=== PATIENT | male | born 1970 | race Caucasian/White ===

== ENCOUNTER 2017-03-31 11:53 | Inpatient (IN) | payer OTHER ==
[2017-03-31 12:53] VITALS: BMI 21.8
--- NOTE | 2017-03-31 14:24 | HP ---
COWS - Scale Resting Pulse: 0= [place] 80 or Below Sweatin=Flushed/Facial Moisture Restless Observation: 3= Extraneous Movement Pupil Size: 2= Moderately Dilated Bone or Joint Aches: 2= Severe Diffuse Aches Runny Nose/ Eye Tearin= Runny Nose/Eyes GI Upset > 30mins: 3= Vomiting/Diarrhea Tremor Observation: 2= Slight Tremor Visible Yawning Observation: 2= >3x During Session Anxiety or Irritability: 2=Irritable/Anxious Goose Flesh Skin: 0=Smooth Skin COWS Score: 20 Admission ROS S - HPI Chief Complaint: i neeed help to stop using heroin and cocaine Allergies/Adverse Reactions: Allergies Allergy/AdvReac Type Severity Reaction Status Date / Time No Known Allergies Allergy Verified 03/31/17 14:06 History of Present Illness: this 46 years old male with heroin and cocaine dependence,seeking detox,last treatment in 02/06,[facility],not completed nicotine dependence weight loss longest period of sobriety 7 years Exam Limitations: No Limitations - Ebola screening Have you traveled outside of the country in the last 21 days: No Have you had contact with anyone from an Ebola affected area: No Have you been sick,other than usual withdrawal symptoms: No Do you have a fever: No - Review of Systems Constitutional: Chills, Diaphoresis, Loss of Appetite, Malaise, Night Sweats, Changes in sleep, Weakness, Unintentional Wgt. Loss EENT: reports: Hearing Loss, Nose Congestion Respiratory: reports: No Symptoms reported Cardiac: reports: Palpitations GI: reports: Diarrhea, Nausea, Vomiting, Abdominal cramping : reports: No Symptoms Reported Musculoskeletal: reports: Back Pain, Joint Pain, Muscle Pain, Joint Stiffness Integumentary: reports: Dryness Neuro: reports: Headache, Tremors Endocrine: reports: No Symptoms Reported Hematology: reports: No Symptoms Reported Psychiatric: reports: No Sypmtoms Reported Patient History - Patient Medical History Hx Anemia: No Hx Asthma: No Hx Chronic Obstructive Pulmonary Disease (COPD): No Hx Cancer: No Hx Cardiac Disorders: No Hx Hypertension: No Hx Hypercholesterolemia: No Hx Pacemaker: No HX Cerebrovascular Accident: No Hx Seizures: No Hx Diabetes: No Hx Gastrointestinal Disorders: No Hx Liver Disease: No Hx Genitourinary Disorders: No Hx Sexually Transmitted Disorders: No Hx Renal Disease (ESRD): No Hx Thyroid Disease: No Hx Human Immunodeficiency Virus (HIV): No (last 10/09 negative) Hx Hepatitis C: Yes (treated with harvoni) Hx Depression: No Hx Suicide Attempt: No Hx Bipolar Disorder: No Hx Schizophrenia: No Other Medical History: no suicidal,no homicidal - Patient Surgical History Past Surgical History: No - PPD History Previous Implant?: Yes Documented Results: Negative w/o proof Implanted On Prior [facility] Admission?: Yes PPD to be Administered?: Yes - Smoking Cessation Smoking history: Current every day smoker Have you smoked in the past 12 months: Yes Aproximately how many cigarettes per day: 5 Hx Chewing Tobacco Use: No Initiated information on smoking cessation: Yes 'Breaking Loose' booklet given: 03/31/17 - Substance & Tx. History Hx Alcohol Use: No Hx Substance Use: Yes Substance Use Type: Heroin Hx Substance Use Treatment: Yes (02/06 [facility] not completed) - Substances Abused Heroin Route: Injection Frequency: Daily Amount used: 10 bags Age of first use: 30 Date of Last Use: 03/31/17 Cocaine Route: Injection Frequency: 1-2 times per week Amount used: 1 gm Age of first use: 23 Date of Last Use: 03/29/17 Family Disease History - Family Disease History Family History: Denies Admission Physical Exam S - Vital Signs Vital Signs: Vital Signs - 24 hr 03/31/17 12:52 Temperature 97.7 F Pulse Rate 78 Respiratory 20 Rate Blood Pressure 112/70 - Physical General Appearance: Yes: Moderate Distress, Tremorous, Irritable, Sweating, Anxious HEENTM: Yes: Normal ENT Inspection, NICHOL, Pharynx Normal, Nasal Congestion Respiratory: Yes: Lungs Clear, Normal Breath Sounds, No Respiratory Distress Neck: Yes: Within Normal Limits, Supple, Trachea in good position Breast: Yes: Within Normal Limits Cardiology: Yes: Within Normal Limits, Regular Rhythm, Regular Rate, S1, S2 Abdominal: Yes: Within Normal Limits, Normal Bowel Sounds, Non Tender, Flat, Soft Genitourinary: Yes: Within Normal Limits Back: Yes: Muscle Spasm Musculoskeletal: Yes: full range of Motion, Back pain, Joint Stiffness, Muscle Pain Extremities: Yes: Tremors 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, Fully Oriented, Alert, Motor Strength 5/5 Integumentary: Yes: Dry, Track Kimble Lymphatic: Yes: Within Normal Limits - Diagnostic (1) Opioid dependence with withdrawal Current Visit: Yes Status: Acute (2) Cocaine dependence Current Visit: Yes Status: Acute Qualifiers: Substance use status: uncomplicated Qualified Code(s): F14.20 - Cocaine dependence, uncomplicated (3) Weight loss Current Visit: Yes Status: Acute (4) Nicotine dependence Current Visit: Yes Status: Acute Qualifiers: Nicotine product type: cigarettes Substance use status: in withdrawal Qualified Code(s): F17.213 - Nicotine dependence, cigarettes, with withdrawal (5) Hepatitis C Current Visit: Yes Status: Acute Qualifiers: Viral hepatitis chronicity: chronic Cleared for Admission [facility] - Detox or Rehab [facility] Level of Care: Medically Managed Detox Regimen/Protocol: Methadone [facility] Breath Alcohol Content Breath Alcohol Content: 0 Urine Drug Screen - Results Drug Screen Negative: No Urine Drug Screen Results: COLT-Cocaine, OPI-Opiates
[2017-03-31] MEDS ORDERED: LOPERAMIDE HCL 2 MG CAPSULE PO PRN (14:41)
[2017-03-31] MEDS ORDERED: MAGNESIUM HYDROX 2400MG/30ML ORAL SUSPENSION 30 ML CUP PO PRN (14:41)
[2017-03-31] MEDS ORDERED: ACETAMINOPHEN 325 MG TABLET (FP) PO PRN (14:41)
[2017-03-31] MEDS ORDERED: guaiFENesin/D-METHORPHAN HB 10 ML UNIT-DOSE CUPS PO PRN (14:41)
[2017-03-31] MEDS ORDERED: IBUPROFEN 400 MG TABLET (FP) PO PRN (14:41)
[2017-03-31] MEDS ORDERED: MENTHOL/PHENOL 1 EACH UD MM PRN (14:41)
[2017-03-31] MEDS ORDERED: MAGNESIUM CITRATE 300 ML BOTTLE PO PRN (14:41)
[2017-03-31] MEDS ORDERED: MAG HYDROX/AL HYDROX/SIMETH 30 ML UNIT-DOSE CUP PO PRN (14:41)
[2017-03-31] MEDS ORDERED: hydrOXYzine PAMOATE 25 MG CAPSULE (FP) PO PRN (14:41)
[2017-03-31] MEDS ORDERED: P-EPHED 60MG/TRIPROLIDI 2.5MG TABLET PO PRN (14:41)
[2017-03-31] MEDS ORDERED: NICOTINE POLACRILEX 2 MG GUM BUC PRN (14:41)
[2017-03-31] MEDS ORDERED: METHADONE HCL 10 MG TABLET (FOR DETOX USE ONLY) PO ONE ×2 (15:29→23:00)
[2017-03-31] MEDS: diazePAM 5 MG TABLET PO PRN ×2 (15:47→22:10)
[2017-03-31] MEDS: NICOTINE 14 MG/24 HOURS TOPICAL PATCH TD SCH (15:49)
[2017-03-31 17:07] LABS: URINE APPEARANCE CLEAR; URINE BILIRUBIN NEGATIVE (NEGATIVE); URINE BLOOD NEGATIVE (NEGATIVE); URINE COLOR YELLOW; URINE GLUCOSE (UA) NEGATIVE (NEGATIVE); URINE KETONE NEGATIVE (NEGATIVE); URINE LEUK ESTERASE NEGATIVE (NEGATIVE); URINE NITRITE NEGATIVE (NEGATIVE); URINE PROTEIN NEGATIVE (NEGATIVE)
[2017-03-31] MEDS: cloNIDine HCL 0.1 MG TABLET PO SCH (22:10)
[2017-03-31] MEDS: THIAMINE HCL 100 MG TABLET (FP) PO SCH (22:10)
[2017-03-31] MEDS: CYCLOBENZAPRINE HCL 10 MG TABLET (FP) PO PRN (22:10)
[2017-04-01 02:24] LABS: HIV 1 & 2 AB NEGATIVE; HIV 1 AGp24 NEGATIVE
[2017-04-01] MEDS: diazePAM 5 MG TABLET PO PRN ×2 (05:10→22:09)
[2017-04-01] MEDS ORDERED: METHADONE HCL 10 MG TABLET (FOR DETOX USE ONLY) PO ONE (10:00)
[2017-04-01 10:02] LABS: MCH 29.2 pg (25.7-33.7); MCHC 33.5 g/dl (32.0-35.9); MEAN PLT VOLUME 9.8 fl (7.5-11.1); PLATELET COUNT 166 K/MM3 (134-434); RDW 13.5 % (11.9-15.9); WHITE BLOOD COUNT 6.6 K/mm3 (4.0-10.0)
[2017-04-01] MEDS: PRENATAL VITAMINS W/ FOLIC ACID TABLET (FP) PO SCH (10:07)
[2017-04-01] MEDS: cloNIDine HCL 0.1 MG TABLET PO SCH ×2 (10:07→22:09)
[2017-04-01] MEDS: NICOTINE 14 MG/24 HOURS TOPICAL PATCH TD SCH (10:08)
--- NOTE | 2017-04-01 10:08 | PN ---
BHS COWS - Scale Resting Pulse: 0= [place] 80 or Below Sweatin= Chills/Flushing Restless Observation: 3= Extraneous Movement Pupil Size: 2= Moderately Dilated Bone or Joint Aches: 4=Acute Joint/Muscle Pain Runny Nose/ Eye Tearin= Nasal Congestion GI Upset > 30mins: 1= Stomach Cramp Tremor Observation of Outstretched Hands: 1= Tremor [place], Not Seen Yawning Observation: 1= 1-2x During Session Anxiety or Irritability: 1=Feels Anxious/Irritable Goose Flesh Skin: 0=Smooth Skin COWS Score: 15 BHS Progress Note (SOAP) Subjective: ANXIETY,FATIGUE,SWEATS. Objective: 04/01/17 10:07 Vital Signs Temperature 96.8 F L 04/01/17 09:20 Pulse Rate 75 04/01/17 09:20 Respiratory Rate 18 04/01/17 09:20 Blood Pressure 113/72 04/01/17 09:20 O2 Sat by Pulse Oximetry (%) Laboratory Last Values WBC 6.6 K/mm3 (4.0-10.0) 04/01/17 06:00 RBC 4.67 M/mm3 (4.00-5.60) 04/01/17 06:00 Hgb 13.6 GM/dL (11.7-16.9) 04/01/17 06:00 Hct 40.6 % (35.4-49) 04/01/17 06:00 MCV 87.0 fl (80-96) 04/01/17 06:00 MCH 29.2 pg (25.7-33.7) 04/01/17 06:00 MCHC 33.5 g/dl (32.0-35.9) 04/01/17 06:00 RDW 13.5 % (11.9-15.9) 04/01/17 06:00 Plt Count 166 K/MM3 (134-434) 04/01/17 06:00 MPV 9.8 fl (7.5-11.1) 04/01/17 06:00 Urine Color Yellow 03/31/17 15:00 Urine Appearance Clear 03/31/17 15:00 Urine pH 5.0 (5.0-8.0) 03/31/17 15:00 Ur Specific [place] 1.025 (1.005-1.025) 03/31/17 15:00 Urine Protein Negative (NEGATIVE) 03/31/17 15:00 Urine Glucose (UA) Negative (NEGATIVE) 03/31/17 15:00 Urine Ketones Negative (NEGATIVE) 03/31/17 15:00 Urine Blood Negative (NEGATIVE) 03/31/17 15:00 Urine Nitrite Negative (NEGATIVE) 03/31/17 15:00 Urine Bilirubin Negative (NEGATIVE) 03/31/17 15:00 Urine Urobilinogen 2.0 mg/dL (0.2-1.0) 03/31/17 15:00 Ur Leukocyte Esterase Negative (NEGATIVE) 03/31/17 15:00 HIV 1&2 Antibody Screen Negative 03/31/17 14:00 HIV P24 Antigen Negative 03/31/17 14:00 Assessment: 04/01/17 10:08 WITHDRAWAL SX Plan: CONTINUE DETOX
[2017-04-01 10:32] LABS: ALBUMIN 3.8 g/dl (3.4-5.0); ALK PHOS 79 U/L (45-117); ANION GAP 8 (8-16); BILIRUBIN,TOTAL 0.5 mg/dL (0.2-1.0); CALCIUM 9.3 mg/dL (8.5-10.1); CO2 31 mmol/L (21-32); CREATININE 1.1 mg/dL (0.7-1.3); GLUCOSE,RANDOM 132 mg/dL (74-106); SGOT/AST 19 U/L (15-37); SGPT/ALT 16 U/L (12-78); TOT PROT 7.7 g/dl (6.4-8.2)
--- NOTE | 2017-04-01 15:39 | EKG ---
Test Reason : Blood Pressure : / mmHG Vent. Rate : 070 BPM Atrial Rate : 070 BPM P-R Int : 156 ms QRS Dur : 070 ms QT Int : 438 ms P-R-T Axes : 066 052 001 degrees QTc Int : 473 ms NORMAL SINUS RHYTHM NORMAL ECG NO PREVIOUS ECGS AVAILABLE Confirmed by NIKKI ZAMBRANO MD ([id number]) on 04/01/2017 3:38:56 PM Referred By: Confirmed By:NIKKI ZAMBRANO MD
[2017-04-01] MEDS: THIAMINE HCL 100 MG TABLET (FP) PO SCH (22:09)
[2017-04-01] MEDS: CYCLOBENZAPRINE HCL 10 MG TABLET (FP) PO PRN (22:09)
[2017-04-02] MEDS ORDERED: METHADONE HCL 5 MG TABLET (FOR DETOX USE ONLY) PO ONE (10:00)
--- NOTE | 2017-04-02 10:02 | PN ---
BHS COWS - Scale Resting Pulse: 1= [place] 81-100 Sweatin= Chills/Flushing Restless Observation: 3= Extraneous Movement Pupil Size: 2= Moderately Dilated Bone or Joint Aches: 4=Acute Joint/Muscle Pain Runny Nose/ Eye Tearin= Nasal Congestion GI Upset > 30mins: 1= Stomach Cramp Tremor Observation of Outstretched Hands: 1= Tremor [place], Not Seen Yawning Observation: 1= 1-2x During Session Anxiety or Irritability: 1=Feels Anxious/Irritable Goose Flesh Skin: 0=Smooth Skin COWS Score: 16 S Progress Note (SOAP) Subjective: ANXIETY,FATIGUE, IRRITABILITY,INTERMITTENT SLEEP. Objective: 04/02/17 10:03 Vital Signs Temperature 96.8 F L 04/02/17 06:07 Pulse Rate 86 04/02/17 06:07 Respiratory Rate 18 04/02/17 06:07 Blood Pressure 102/73 04/02/17 06:07 O2 Sat by Pulse Oximetry (%) Laboratory Last Values WBC 6.6 K/mm3 (4.0-10.0) 04/01/17 06:00 RBC 4.67 M/mm3 (4.00-5.60) 04/01/17 06:00 Hgb 13.6 GM/dL (11.7-16.9) 04/01/17 06:00 Hct 40.6 % (35.4-49) 04/01/17 06:00 MCV 87.0 fl (80-96) 04/01/17 06:00 MCH 29.2 pg (25.7-33.7) 04/01/17 06:00 MCHC 33.5 g/dl (32.0-35.9) 04/01/17 06:00 RDW 13.5 % (11.9-15.9) 04/01/17 06:00 Plt Count 166 K/MM3 (134-434) 04/01/17 06:00 MPV 9.8 fl (7.5-11.1) 04/01/17 06:00 Sodium 138 mmol/L (136-145) 04/01/17 06:00 Potassium 3.5 mmol/L (3.5-5.1) 04/01/17 06:00 Chloride 99 mmol/L (98-107) 04/01/17 06:00 Carbon Dioxide 31 mmol/L (21-32) 04/01/17 06:00 Anion Gap 8 (8-16) 04/01/17 06:00 BUN 21 mg/dL (7-18) H 04/01/17 06:00 Creatinine 1.1 mg/dL (0.7-1.3) 04/01/17 06:00 Creat Clearance w eGFR > 60 (>60) 04/01/17 06:00 Random Glucose 132 mg/dL (74-106) H 04/01/17 06:00 Calcium 9.3 mg/dL (8.5-10.1) 04/01/17 06:00 Total Bilirubin 0.5 mg/dL (0.2-1.0) 04/01/17 06:00 AST 19 U/L (15-37) 04/01/17 06:00 ALT 16 U/L (12-78) 04/01/17 06:00 Alkaline Phosphatase 79 U/L (45-117) 04/01/17 06:00 Total Protein 7.7 g/dl (6.4-8.2) 04/01/17 06:00 Albumin 3.8 g/dl (3.4-5.0) 04/01/17 06:00 Urine Color Yellow 03/31/17 15:00 Urine Appearance Clear 03/31/17 15:00 Urine pH 5.0 (5.0-8.0) 03/31/17 15:00 Ur Specific [place] 1.025 (1.005-1.025) 03/31/17 15:00 Urine Protein Negative (NEGATIVE) 03/31/17 15:00 Urine Glucose (UA) Negative (NEGATIVE) 03/31/17 15:00 Urine Ketones Negative (NEGATIVE) 03/31/17 15:00 Urine Blood Negative (NEGATIVE) 03/31/17 15:00 Urine Nitrite Negative (NEGATIVE) 03/31/17 15:00 Urine Bilirubin Negative (NEGATIVE) 03/31/17 15:00 Urine Urobilinogen 2.0 mg/dL (0.2-1.0) 03/31/17 15:00 Ur Leukocyte Esterase Negative (NEGATIVE) 03/31/17 15:00 RPR Titer Nonreactive (NONREACTIVE) 04/01/17 06:00 HIV 1&2 Antibody Screen Negative 03/31/17 14:00 HIV P24 Antigen Negative 03/31/17 14:00 Assessment: 04/02/17 10:03 WITHDRAWAL SX Plan: CONTINUE DETOX
[2017-04-02] MEDS: PRENATAL VITAMINS W/ FOLIC ACID TABLET (FP) PO SCH (10:10)
[2017-04-02] MEDS: NICOTINE 14 MG/24 HOURS TOPICAL PATCH TD SCH (10:10)
[2017-04-02] MEDS: cloNIDine HCL 0.1 MG TABLET PO SCH ×2 (10:11→22:06)
[2017-04-02] MEDS: diazePAM 5 MG TABLET PO PRN ×2 (16:42→22:06)
[2017-04-02] MEDS: CYCLOBENZAPRINE HCL 10 MG TABLET (FP) PO PRN (22:06)
[2017-04-02] MEDS: THIAMINE HCL 100 MG TABLET (FP) PO SCH (22:07)
[2017-04-02] MEDS: diphenhydrAMINE HCL 50 MG CAPSULE PO PRN (22:07)
[2017-04-03] MEDS ORDERED: TRIMETHOBENZAMIDE HCL 200MG/2ML INJ IM PRN (02:28)
[2017-04-03] MEDS: ONDANSETRON *ODT* 4 MG TABLET SL PRN ×2 (06:32→18:01)
[2017-04-03] MEDS ORDERED: METHADONE HCL 5 MG TABLET (FOR DETOX USE ONLY) PO ONE (10:00)
[2017-04-03] MEDS: PRENATAL VITAMINS W/ FOLIC ACID TABLET (FP) PO SCH (10:08)
[2017-04-03] MEDS: cloNIDine HCL 0.1 MG TABLET PO SCH ×2 (10:08→22:55)
[2017-04-03] MEDS: diazePAM 5 MG TABLET PO PRN (10:09)
[2017-04-03] MEDS: NICOTINE 14 MG/24 HOURS TOPICAL PATCH TD SCH (10:43)
--- NOTE | 2017-04-03 12:30 | PN ---
BHS Progress Note (SOAP) Subjective: Nausea, Stomach Cramping, Interrupted sleep. Objective: PT. A & O X 3. NO ACUTE DISTRESS. PT. DENIES CHEST PAIN. 04/03/17 12:28 Vital Signs Temperature 97.7 F 04/03/17 09:04 Pulse Rate 70 04/03/17 09:04 Respiratory Rate 18 04/03/17 09:04 Blood Pressure 152/97 04/03/17 09:04 O2 Sat by Pulse Oximetry (%) Laboratory Tests 03/31/17 03/31/17 04/01/17 14:00 15:00 06:00 WBC 6.6 RBC 4.67 Hgb 13.6 Hct 40.6 MCV 87.0 MCH 29.2 MCHC 33.5 RDW 13.5 Plt Count 166 MPV 9.8 Sodium Potassium Chloride Carbon Dioxide Anion Gap BUN Creatinine Creat Clearance w eGFR Random Glucose Calcium Total Bilirubin AST ALT Alkaline Phosphatase Total Protein Albumin Urine Color Yellow Urine Appearance Clear Urine pH 5.0 Ur Specific [place] 1.025 Urine Protein Negative Urine Glucose (UA) Negative Urine Ketones Negative Urine Blood Negative Urine Nitrite Negative Urine Bilirubin Negative Urine Urobilinogen 2.0 Ur Leukocyte Esterase Negative RPR Titer HIV 1&2 Antibody Screen Negative HIV P24 Antigen Negative 04/01/17 04/01/17 06:00 06:00 WBC RBC Hgb Hct MCV MCH MCHC RDW Plt Count MPV Sodium 138 Potassium 3.5 Chloride 99 Carbon Dioxide 31 Anion Gap 8 BUN 21 H Creatinine 1.1 Creat Clearance w eGFR > 60 Random Glucose 132 H Calcium 9.3 Total Bilirubin 0.5 AST 19 ALT 16 Alkaline Phosphatase 79 Total Protein 7.7 Albumin 3.8 Urine Color Urine Appearance Urine pH Ur Specific [place] Urine Protein Urine Glucose (UA) Urine Ketones Urine Blood Urine Nitrite Urine Bilirubin Urine Urobilinogen Ur Leukocyte Esterase RPR Titer Nonreactive HIV 1&2 Antibody Screen HIV P24 Antigen LABS NOTED. Assessment: 04/03/17 12:29 WITHDRAWAL SYMPTOMS. Plan: CONTINUE DETOX.
[2017-04-03] MEDS: THIAMINE HCL 100 MG TABLET (FP) PO SCH (22:55)
[2017-04-04] MEDS ORDERED: METHADONE HCL 10 MG TABLET (FOR DETOX USE ONLY) PO ONE (10:00)
[2017-04-04] MEDS: cloNIDine HCL 0.1 MG TABLET PO SCH ×2 (10:06→22:09)
[2017-04-04] MEDS: NICOTINE 14 MG/24 HOURS TOPICAL PATCH TD SCH (10:06)
[2017-04-04] MEDS: PRENATAL VITAMINS W/ FOLIC ACID TABLET (FP) PO SCH (10:06)
--- NOTE | 2017-04-04 13:47 | PN ---
BHS Progress Note (SOAP) Subjective: N/V (patient stated he hasn't been eating because he is nauseous all the time and has been putting his finger down his throat to induce vomiting as vomiting is the only thing that helps his nausea). Patient discouraged from inducing vomiting. He refused to be placed on clear liquid diet. Objective: 04/04/17 13:45 Last Vital Signs Temp Pulse Resp BP Pulse Ox 97.3 F L 86 18 129/85 04/04/17 09:28 04/04/17 09:28 04/04/17 09:28 04/04/17 09:28 Laboratory Tests 03/31/17 03/31/17 04/01/17 14:00 15:00 06:00 WBC 6.6 RBC 4.67 Hgb 13.6 Hct 40.6 MCV 87.0 MCH 29.2 MCHC 33.5 RDW 13.5 Plt Count 166 MPV 9.8 Sodium Potassium Chloride Carbon Dioxide Anion Gap BUN Creatinine Creat Clearance w eGFR Random Glucose Calcium Total Bilirubin AST ALT Alkaline Phosphatase Total Protein Albumin Urine Color Yellow Urine Appearance Clear Urine pH 5.0 Ur Specific [place] 1.025 Urine Protein Negative Urine Glucose (UA) Negative Urine Ketones Negative Urine Blood Negative Urine Nitrite Negative Urine Bilirubin Negative Urine Urobilinogen 2.0 Ur Leukocyte Esterase Negative RPR Titer HIV 1&2 Antibody Screen Negative HIV P24 Antigen Negative 04/01/17 04/01/17 06:00 06:00 WBC RBC Hgb Hct MCV MCH MCHC RDW Plt Count MPV Sodium 138 Potassium 3.5 Chloride 99 Carbon Dioxide 31 Anion Gap 8 BUN 21 H Creatinine 1.1 Creat Clearance w eGFR > 60 Random Glucose 132 H Calcium 9.3 Total Bilirubin 0.5 AST 19 ALT 16 Alkaline Phosphatase 79 Total Protein 7.7 Albumin 3.8 Urine Color Urine Appearance Urine pH Ur Specific [place] Urine Protein Urine Glucose (UA) Urine Ketones Urine Blood Urine Nitrite Urine Bilirubin Urine Urobilinogen Ur Leukocyte Esterase RPR Titer Nonreactive HIV 1&2 Antibody Screen HIV P24 Antigen Labs noted Assessment: 04/04/17 13:46 Withdrawal symptoms c/o n/v without any relief with present regimen Plan: Continue detox N/V: Add syed nicolas PO bid, continue ensure, encouraged to drink lots of water ( water pitcher ordered), start zantac 150mg PO bid
[2017-04-04] MEDS ORDERED: RANITIDINE HCL 150 MG TABLET (FP) PO SCH (22:00)
[2017-04-04] MEDS: CYCLOBENZAPRINE HCL 10 MG TABLET (FP) PO PRN (22:08)
[2017-04-04] MEDS: THIAMINE HCL 100 MG TABLET (FP) PO SCH (22:08)
[2017-04-04] MEDS: diphenhydrAMINE HCL 50 MG CAPSULE PO PRN (22:09)
[2017-04-05] MEDS ORDERED: METHADONE HCL 5 MG TABLET (FOR DETOX USE ONLY) PO ONE (06:00)
[2017-04-05 06:22] VITALS: BP 97/57; PULSE 77; TEMP 97.1
--- NOTE | 2017-04-05 11:26 | DS ---
[facility] Detox Discharge Summary Admission Date: 03/31/17 Discharge Date: 04/05/17 - History Present History: Cocaine Dependence, Opioid Dependence Additional Comments: PT. GOING HOME. ADVISED TO CONSIDER LOCAL 12-STEP / NA / AA OUTPATIENT PROGRAM FOR FOLLOW-UP AFTERCARE. PATIENT WAS DISCHARGED FROM UNIT IN STABLE MEDICAL CONDITION. Pertinent Past History: Hep C (Treated). - Physical Exam Results Vital Signs: Vital Signs Temperature 97.1 F L 04/05/17 06:21 Pulse Rate 77 04/05/17 06:21 Respiratory Rate 18 04/05/17 06:21 Blood Pressure 97/57 04/05/17 06:21 O2 Sat by Pulse Oximetry (%) Pertinent Admission Physical Exam Findings: WITHDRAWAL SYMPTOMS. Laboratory Tests 03/31/17 03/31/17 04/01/17 14:00 15:00 06:00 WBC 6.6 RBC 4.67 Hgb 13.6 Hct 40.6 MCV 87.0 MCH 29.2 MCHC 33.5 RDW 13.5 Plt Count 166 MPV 9.8 Sodium Potassium Chloride Carbon Dioxide Anion Gap BUN Creatinine Creat Clearance w eGFR Random Glucose Calcium Total Bilirubin AST ALT Alkaline Phosphatase Total Protein Albumin Urine Color Yellow Urine Appearance Clear Urine pH 5.0 Ur Specific [place] 1.025 Urine Protein Negative Urine Glucose (UA) Negative Urine Ketones Negative Urine Blood Negative Urine Nitrite Negative Urine Bilirubin Negative Urine Urobilinogen 2.0 Ur Leukocyte Esterase Negative RPR Titer HIV 1&2 Antibody Screen Negative HIV P24 Antigen Negative 04/01/17 04/01/17 06:00 06:00 WBC RBC Hgb Hct MCV MCH MCHC RDW Plt Count MPV Sodium 138 Potassium 3.5 Chloride 99 Carbon Dioxide 31 Anion Gap 8 BUN 21 H Creatinine 1.1 Creat Clearance w eGFR > 60 Random Glucose 132 H Calcium 9.3 Total Bilirubin 0.5 AST 19 ALT 16 Alkaline Phosphatase 79 Total Protein 7.7 Albumin 3.8 Urine Color Urine Appearance Urine pH Ur Specific [place] Urine Protein Urine Glucose (UA) Urine Ketones Urine Blood Urine Nitrite Urine Bilirubin Urine Urobilinogen Ur Leukocyte Esterase RPR Titer Nonreactive HIV 1&2 Antibody Screen HIV P24 Antigen LABS NOTED. - Treatment Hospital Course: Detox Protocol Followed, Detoxed Safely, Responded well, Discharged Condition Good Patient has Accepted a Rehab Referral to: PT. GOING HOME. ADVISED TO CONSIDER 12 -STEP/NA PROGRAMS FOR AFTERCARE. - Medication Discharge Medications: Ambulatory Orders NK [No Known Home Medication] 03/31/17 - Diagnosis (1) Cocaine dependence Status: Acute Qualifiers: Substance use status: uncomplicated Qualified Code(s): F14.20 - Cocaine dependence, uncomplicated (2) Hepatitis C Status: Chronic Qualifiers: Viral hepatitis chronicity: chronic Hepatic coma status: without hepatic coma Qualified Code(s): B18.2 - Chronic viral hepatitis C (3) Nicotine dependence Status: Chronic Qualifiers: Nicotine product type: cigarettes Substance use status: in withdrawal Qualified Code(s): F17.213 - Nicotine dependence, cigarettes, with withdrawal (4) Opioid dependence with withdrawal Status: Acute (5) Weight loss Status: Acute - AMA Did Patient Leave Against Medical Advice: No
== END 2017-04-05 08:58 | disposition home or self-care (01) | DRG 773 ==
LOC: YASAS 11:53 → Y3N 14:33
PROVIDERS: ADMIT Internal Medicine; ATTEND Internal Medicine
PROC: HZ2ZZZZ Detoxification Services for Substance Abuse Treatment (ICD-10-PCS; principal; 2017-03-31)
DX: F11.23 Opioid dependence with withdrawal (principal); F14.20 Cocaine dependence, uncomplicated; F17.210 Nicotine dependence, cigarettes, uncomplicated; B18.2 Chronic viral hepatitis C; Z87.898 Personal history of other specified conditions
CPT/HCPCS: 36415; 80053; 81003; 85027; 86593; 87389; 93005; 93010

== ENCOUNTER 2017-06-11 10:53 | Inpatient (IN) | payer OTHER ==
[2017-06-11 12:03] VITALS: BMI 21.8
--- NOTE | 2017-06-11 14:09 | HP ---
COWS - Scale Resting Pulse: 0= [place] 80 or Below Sweatin=Flushed/Facial Moisture Restless Observation: 3= Extraneous Movement Pupil Size: 2= Moderately Dilated Bone or Joint Aches: 2= Severe Diffuse Aches Runny Nose/ Eye Tearin= Runny Nose/Eyes GI Upset > 30mins: 3= Vomiting/Diarrhea Tremor Observation: 2= Slight Tremor Visible Yawning Observation: 2= >3x During Session Anxiety or Irritability: 2=Irritable/Anxious Goose Flesh Skin: 0=Smooth Skin COWS Score: 20 Admission ROS S - HPI Chief Complaint: I NEED HELP TO STOP USING HEROIN AND COCAINE Allergies/Adverse Reactions: Allergies Allergy/AdvReac Type Severity Reaction Status Date / Time No Known Allergies Allergy Verified 06/11/17 13:35 History of Present Illness: THIS 47 YEARS OLD MAL WITH HEROIN AND CANNABIS DEPENDENCE,SEEKING DETOX,LAST TREATMENT [facility] 03/31/17 TO 04/05/17 WEIGHT LOSS NICOTINE DEPENDENCE LONGEST PERIOD OF SOBRIETY 3 YEARS - Ebola screening Have you traveled outside of the country in the last 21 days: No Have you had contact with anyone from an Ebola affected area: No Have you been sick,other than usual withdrawal symptoms: No Do you have a fever: No - Review of Systems Constitutional: Chills, Loss of Appetite, Malaise, Night Sweats, Changes in sleep, Weakness EENT: reports: Tearing, Nose Congestion Respiratory: reports: No Symptoms reported Cardiac: reports: No Symptoms Reported GI: reports: Diarrhea, Nausea, Vomiting, Abdominal cramping : reports: No Symptoms Reported Musculoskeletal: reports: Back Pain, Joint Pain, Muscle Pain, Joint Stiffness Integumentary: reports: Dryness Neuro: reports: Headache, Tremors Endocrine: reports: No Symptoms Reported Hematology: reports: No Symptoms Reported Psychiatric: reports: No Sypmtoms Reported, Judgement Intact, Mood/Affect Appropiate, Orientated x3 Patient History - Patient Medical History Hx Anemia: No Hx Asthma: No Hx Chronic Obstructive Pulmonary Disease (COPD): No Hx Cancer: No Hx Cardiac Disorders: No Hx Hypertension: No Hx Hypercholesterolemia: No Hx Pacemaker: No HX Cerebrovascular Accident: No Hx Seizures: No Hx Diabetes: No Hx Gastrointestinal Disorders: No Hx Liver Disease: No Hx Genitourinary Disorders: No Hx Sexually Transmitted Disorders: No Hx Renal Disease (ESRD): No Hx Thyroid Disease: No Hx Human Immunodeficiency Virus (HIV): No (last 10/09 negative) Hx Hepatitis C: Yes (treated with harvoni) Hx Depression: No Hx Suicide Attempt: No Hx Bipolar Disorder: No Hx Schizophrenia: No Other Medical History: NO SUICIDAL,NO HOMICIDAL - Patient Surgical History Past Surgical History: No - PPD History Previous Implant?: Yes Documented Results: Negative w/proof Implanted On Prior [facility] Admission?: Yes Date: 04/02/17 PPD to be Administered?: Yes - Smoking Cessation Smoking history: Current every day smoker Have you smoked in the past 12 months: Yes Aproximately how many cigarettes per day: 5 Hx Chewing Tobacco Use: No Initiated information on smoking cessation: Yes 'Breaking Loose' booklet given: 06/11/17 - Substance & Tx. History Hx Alcohol Use: Yes Hx Substance Use: Yes Substance Use Type: Alcohol, Cocaine Hx Substance Use Treatment: Yes (LAST [facility] 03/31 TO 04/05) - Substances Abused Heroin Route: Injection Frequency: Daily Amount used: 15 bags Age of first use: 30 Date of Last Use: 06/11/17 Cocaine Route: Injection Frequency: Daily Amount used: 1 gm weekly/$1000 weekly Age of first use: 23 Date of Last Use: 06/11/17 Family Disease History - Family Disease History Family History: Denies Admission Physical Exam S - Vital Signs Vital Signs: Vital Signs - 24 hr 06/11/17 12:01 Temperature 96.7 F L Pulse Rate 72 Respiratory 18 Rate Blood Pressure 115/71 - Physical General Appearance: Yes: Moderate Distress, Tremorous, Irritable, Sweating, Anxious HEENTM: Yes: Normal ENT Inspection, NICHOL, Pharynx Normal, Tm's normal Respiratory: Yes: Within Normal Limits, Lungs Clear, Normal Breath Sounds Neck: Yes: Within Normal Limits, Supple, Trachea in good position Breast: Yes: Within Normal Limits Cardiology: Yes: Within Normal Limits, Regular Rhythm, Regular Rate, S1, S2 Abdominal: Yes: Within Normal Limits, Normal Bowel Sounds, Non Tender, Flat, Soft Genitourinary: Yes: Within Normal Limits Back: Yes: Muscle Spasm Extremities: Yes: Tremors 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, Fully Oriented, Alert, Motor Strength 5/5 Integumentary: Yes: Dry, Track Kimble, Other - Addiitonal Findings: CELLULITIS OF RIGHT FOREARM - Diagnostic (1) Opioid dependence with withdrawal Current Visit: No Status: Acute (2) Cocaine dependence Current Visit: No Status: Acute Qualifiers: Substance use status: uncomplicated Qualified Code(s): F14.20 - Cocaine dependence, uncomplicated; F14.20 - Cocaine dependence, uncomplicated; F14.20 - Cocaine dependence, uncomplicated (3) Weight loss Current Visit: No Status: Acute (4) Hepatitis C Current Visit: No Status: Chronic Qualifiers: Viral hepatitis chronicity: chronic Hepatic coma status: without hepatic coma Qualified Code(s): B18.2 - Chronic viral hepatitis C; B18.2 - Chronic viral hepatitis C; B18.2 - Chronic viral hepatitis C; B18.2 - Chronic viral hepatitis C (5) Nicotine dependence Current Visit: No Status: Chronic Qualifiers: Nicotine product type: cigarettes Substance use status: in withdrawal Qualified Code(s): F17.213 - Nicotine dependence, cigarettes, with withdrawal; F17.213 - Nicotine dependence, cigarettes, with withdrawal (6) Cellulitis of forearm, right Current Visit: Yes Status: Acute Cleared for Admission [facility] - Detox or Rehab [facility] Level of Care: Medically Managed Detox Regimen/Protocol: Methadone [facility] Breath Alcohol Content Breath Alcohol Content: 0 Urine Drug Screen - Results Drug Screen Negative: No Urine Drug Screen Results: COLT-Cocaine, OPI-Opiates
[2017-06-11] MEDS ORDERED: IBUPROFEN 400 MG TABLET (FP) PO PRN (14:20)
[2017-06-11] MEDS ORDERED: P-EPHED 60MG/TRIPROLIDI 2.5MG TABLET PO PRN (14:20)
[2017-06-11] MEDS ORDERED: MAGNESIUM HYDROX 2400MG/30ML ORAL SUSPENSION 30 ML CUP PO PRN (14:20)
[2017-06-11] MEDS ORDERED: NICOTINE POLACRILEX 2 MG GUM BC PRN (14:20)
[2017-06-11] MEDS ORDERED: MAGNESIUM CITRATE 300 ML BOTTLE PO PRN (14:20)
[2017-06-11] MEDS ORDERED: MENTHOL/PHENOL 1 EACH UD MM PRN (14:20)
[2017-06-11] MEDS ORDERED: MAG HYDROX/AL HYDROX/SIMETH 30 ML UNIT-DOSE CUP PO PRN (14:20)
[2017-06-11] MEDS ORDERED: ACETAMINOPHEN 325 MG TABLET (FP) PO PRN (14:20)
[2017-06-11] MEDS ORDERED: LOPERAMIDE HCL 2 MG CAPSULE PO PRN (14:20)
[2017-06-11] MEDS ORDERED: guaiFENesin/D-METHORPHAN HB 10 ML UNIT-DOSE CUPS PO PRN (14:20)
[2017-06-11] MEDS ORDERED: METHADONE HCL 10 MG TABLET (FOR DETOX USE ONLY) PO ONE ×2 (15:00→23:00)
[2017-06-11] MEDS: NICOTINE 21 MG/24 HOURS TOPICAL PATCH TD SCH (15:03)
[2017-06-11] MEDS: diazePAM 5 MG TABLET PO PRN (15:03)
[2017-06-11 19:04] LABS: URINE APPEARANCE SLCLOUDY; URINE BILIRUBIN NEGATIVE (NEGATIVE); URINE BLOOD NEGATIVE (NEGATIVE); URINE COLOR YELLOW; URINE GLUCOSE (UA) NEGATIVE (NEGATIVE); URINE KETONE NEGATIVE (NEGATIVE); URINE NITRITE NEGATIVE (NEGATIVE); URINE PROTEIN NEGATIVE (NEGATIVE); URINE UROBILINOGEN NEGATIVE mg/dL (0.2-1.0)
[2017-06-11 20:24] LABS: URINE LEUK ESTERASE Negative (NEGATIVE)
[2017-06-11] MEDS: cloNIDine HCL 0.1 MG TABLET PO SCH (22:39)
[2017-06-11] MEDS: THIAMINE HCL 100 MG TABLET (FP) PO SCH (22:39)
[2017-06-11] MEDS: diphenhydrAMINE HCL 50 MG CAPSULE PO PRN (22:40)
[2017-06-12 09:18] LABS: MCH 29.3 pg (25.7-33.7); MCHC 33.1 g/dl (32.0-35.9); MEAN CELL VOLUME 88.4 fl (80-96); MEAN PLT VOLUME 9.3 fl (7.5-11.1); PLATELET COUNT 203 K/MM3 (134-434); RDW 13.7 % (11.9-15.9); WHITE BLOOD COUNT 7.3 K/mm3 (4.0-10.0)
[2017-06-12] MEDS ORDERED: METHADONE HCL 10 MG TABLET (FOR DETOX USE ONLY) PO ONE (10:00)
[2017-06-12] MEDS: cloNIDine HCL 0.1 MG TABLET PO SCH ×2 (11:01→22:38)
[2017-06-12] MEDS: PRENATAL VITAMINS W/ FOLIC ACID TABLET (FP) PO SCH (11:01)
[2017-06-12] MEDS: NICOTINE 21 MG/24 HOURS TOPICAL PATCH TD SCH (11:01)
[2017-06-12 11:13] LABS: ALBUMIN 3.9 g/dl (3.4-5.0); ALK PHOS 81 U/L (45-117); ANION GAP 5 (8-16); BILIRUBIN,TOTAL 0.6 mg/dL (0.2-1.0); CALCIUM 9.1 mg/dL (8.5-10.1); CO2 30 mmol/L (21-32); CREATININE 1.1 mg/dL (0.7-1.3); GLUCOSE,RANDOM 97 mg/dL (74-106); SGOT/AST 16 U/L (15-37); SGPT/ALT 17 U/L (12-78); TOT PROT 7.7 g/dl (6.4-8.2)
--- NOTE | 2017-06-12 11:55 | PN ---
BHS COWS - Scale Resting Pulse: 0= [place] 80 or Below Sweatin= Chills/Flushing Restless Observation: 1= Difficult to Sit Still Pupil Size: 2= Moderately Dilated Bone or Joint Aches: 1= Mild Discomfort Runny Nose/ Eye Tearin= Runny Nose/Eyes GI Upset > 30mins: 2= Nausea/Diarrhea Tremor Observation of Outstretched Hands: 1= Tremor [place], Not Seen Yawning Observation: 0= None Anxiety or Irritability: 2=Irritable/Anxious Goose Flesh Skin: 0=Smooth Skin COWS Score: 12 BHS Progress Note (SOAP) Subjective: aches, poor sleep, sweating Objective: 06/12/17 11:53 Laboratory Tests 06/11/17 06/12/17 06/12/17 18:00 06:00 06:00 WBC 7.3 RBC 4.72 Hgb 13.8 Hct 41.7 MCV 88.4 MCH 29.3 MCHC 33.1 RDW 13.7 Plt Count 203 D MPV 9.3 Sodium 139 Potassium 4.3 D Chloride 104 Carbon Dioxide 30 Anion Gap 5 L BUN 22 H Creatinine 1.1 Creat Clearance w eGFR > 60 Random Glucose 97 D Calcium 9.1 Total Bilirubin 0.6 AST 16 ALT 17 Alkaline Phosphatase 81 Total Protein 7.7 Albumin 3.9 Urine Color Yellow Urine Appearance Slcloudy Urine pH 5.0 Ur Specific [place] 1.025 Urine Protein Negative Urine Glucose (UA) Negative Urine Ketones Negative Urine Blood Negative Urine Nitrite Negative Urine Bilirubin Negative Urine Urobilinogen Negative Ur Leukocyte Esterase Negative RPR Titer 06/12/17 06:00 WBC RBC Hgb Hct MCV MCH MCHC RDW Plt Count MPV Sodium Potassium Chloride Carbon Dioxide Anion Gap BUN Creatinine Creat Clearance w eGFR Random Glucose Calcium Total Bilirubin AST ALT Alkaline Phosphatase Total Protein Albumin Urine Color Urine Appearance Urine pH Ur Specific [place] Urine Protein Urine Glucose (UA) Urine Ketones Urine Blood Urine Nitrite Urine Bilirubin Urine Urobilinogen Ur Leukocyte Esterase RPR Titer Nonreactive Vital Signs - 24 hr 06/11/17 06/11/17 06/11/17 12:01 15:05 18:06 Temperature 96.7 F L 98.2 F 98.2 F Pulse Rate 72 81 80 Respiratory 18 18 18 Rate Blood Pressure 115/71 124/76 104/63 06/11/17 06/12/17 06/12/17 23:47 00:30 04:30 Temperature 98.2 F Pulse Rate 79 Respiratory 18 18 18 Rate Blood Pressure 139/64 06/12/17 06/12/17 06:32 11:09 Temperature 97.6 F 98.2 F Pulse Rate 65 74 Respiratory 16 18 Rate Blood Pressure 119/59 112/75 Assessment: 06/12/17 11:54 withdrawal Plan: cont detox protocol
--- NOTE | 2017-06-12 13:24 | EKG ---
Test Reason : Blood Pressure : / mmHG Vent. Rate : 071 BPM Atrial Rate : 071 BPM P-R Int : 150 ms QRS Dur : 068 ms QT Int : 418 ms P-R-T Axes : 054 040 -20 degrees QTc Int : 454 ms NORMAL SINUS RHYTHM VOLTAGE CRITERIA FOR LEFT VENTRICULAR HYPERTROPHY ABNORMAL ECG WHEN COMPARED WITH ECG OF 31-MAR-2017 14:32, NOTE CHANGE IN V2 MORPHOLOGY WHICH COULD BE RLATED TO LEAD POSITIONING, RECOMMEND REPEAT Confirmed by ELIUD GOFF MD ([id number]) on 06/12/2017 1:23:41 PM Referred By: Confirmed By:ELIUD GOFF MD
[2017-06-12] MEDS: diphenhydrAMINE HCL 50 MG CAPSULE PO PRN (22:38)
[2017-06-12] MEDS: THIAMINE HCL 100 MG TABLET (FP) PO SCH (22:38)
[2017-06-12] MEDS: diazePAM 5 MG TABLET PO PRN (22:38)
[2017-06-12] MEDS: CYCLOBENZAPRINE HCL 10 MG TABLET (FP) PO PRN (22:38)
[2017-06-13] MEDS ORDERED: METHADONE HCL 5 MG TABLET (FOR DETOX USE ONLY) PO ONE (10:00)
[2017-06-13] MEDS: PRENATAL VITAMINS W/ FOLIC ACID TABLET (FP) PO SCH (10:33)
[2017-06-13] MEDS: cloNIDine HCL 0.1 MG TABLET PO SCH ×2 (10:33→21:42)
[2017-06-13] MEDS: NICOTINE 21 MG/24 HOURS TOPICAL PATCH TD SCH (10:34)
--- NOTE | 2017-06-13 11:24 | PN ---
BHS COWS - Scale Resting Pulse: 0= [place] 80 or Below Sweatin=Flushed/Facial Moisture Restless Observation: 1= Difficult to Sit Still Pupil Size: 0= Normal to Room Light Bone or Joint Aches: 2= Severe Diffuse Aches Runny Nose/ Eye Tearin= Runny Nose/Eyes GI Upset > 30mins: 2= Nausea/Diarrhea Tremor Observation of Outstretched Hands: 2= Slight Tremor Visible Yawning Observation: 1= 1-2x During Session Anxiety or Irritability: 2=Irritable/Anxious Goose Flesh Skin: 0=Smooth Skin COWS Score: 14 BHS Progress Note (SOAP) Subjective: Sweating,interrupted sleep,restless,tremors,anxiety,nausea Objective: 06/13/17 11:21 Vital Signs - 8 hr 06/13/17 06/13/17 06/13/17 03:30 06:00 10:00 Temperature 97.5 F L 97.1 F L Pulse Rate 73 72 Respiratory 18 18 16 Rate Blood Pressure 125/74 154/94 Laboratory Tests 06/11/17 06/12/17 06/12/17 18:00 06:00 06:00 WBC 7.3 RBC 4.72 Hgb 13.8 Hct 41.7 MCV 88.4 MCH 29.3 MCHC 33.1 RDW 13.7 Plt Count 203 D MPV 9.3 Sodium 139 Potassium 4.3 D Chloride 104 Carbon Dioxide 30 Anion Gap 5 L BUN 22 H Creatinine 1.1 Creat Clearance w eGFR > 60 Random Glucose 97 D Calcium 9.1 Total Bilirubin 0.6 AST 16 ALT 17 Alkaline Phosphatase 81 Total Protein 7.7 Albumin 3.9 Urine Color Yellow Urine Appearance Slcloudy Urine pH 5.0 Ur Specific [place] 1.025 Urine Protein Negative Urine Glucose (UA) Negative Urine Ketones Negative Urine Blood Negative Urine Nitrite Negative Urine Bilirubin Negative Urine Urobilinogen Negative Ur Leukocyte Esterase Negative RPR Titer 06/12/17 06:00 WBC RBC Hgb Hct MCV MCH MCHC RDW Plt Count MPV Sodium Potassium Chloride Carbon Dioxide Anion Gap BUN Creatinine Creat Clearance w eGFR Random Glucose Calcium Total Bilirubin AST ALT Alkaline Phosphatase Total Protein Albumin Urine Color Urine Appearance Urine pH Ur Specific [place] Urine Protein Urine Glucose (UA) Urine Ketones Urine Blood Urine Nitrite Urine Bilirubin Urine Urobilinogen Ur Leukocyte Esterase RPR Titer Nonreactive labs noted Assessment: 06/13/17 11:22 Withdrawal sx. Plan: Continue detox
[2017-06-13] MEDS: ONDANSETRON *ODT* 4 MG TABLET SL PRN (11:33)
[2017-06-13] MEDS: hydrOXYzine PAMOATE 25 MG CAPSULE (FP) PO PRN (13:40)
[2017-06-13] MEDS: CYCLOBENZAPRINE HCL 10 MG TABLET (FP) PO PRN ×2 (13:40→21:43)
[2017-06-13] MEDS: diazePAM 5 MG TABLET PO PRN ×2 (17:37→21:42)
[2017-06-13] MEDS: THIAMINE HCL 100 MG TABLET (FP) PO SCH (21:41)
[2017-06-13] MEDS: diphenhydrAMINE HCL 50 MG CAPSULE PO PRN (21:42)
[2017-06-14] MEDS ORDERED: METHADONE HCL 5 MG TABLET (FOR DETOX USE ONLY) PO ONE (10:00)
[2017-06-14] MEDS: PRENATAL VITAMINS W/ FOLIC ACID TABLET (FP) PO SCH (10:46)
[2017-06-14] MEDS: cloNIDine HCL 0.1 MG TABLET PO SCH ×2 (10:46→22:56)
[2017-06-14] MEDS: diazePAM 5 MG TABLET PO PRN (10:46)
[2017-06-14] MEDS: NICOTINE 21 MG/24 HOURS TOPICAL PATCH TD SCH (10:47)
--- NOTE | 2017-06-14 11:54 | PN ---
BHS Progress Note (SOAP) Subjective: ALERT,IRRITABLE,ANXIOUS,INTERRUPTED SLEEP,PAIN IN THE BODY Objective: 06/14/17 11:53 Vital Signs Temperature 98.4 F 06/14/17 10:08 Pulse Rate 75 06/14/17 10:08 Respiratory Rate 18 06/14/17 10:08 Blood Pressure 134/81 06/14/17 10:08 O2 Sat by Pulse Oximetry (%) Assessment: 06/14/17 11:53 WITHDRAWAL SYMPTOM Plan: CONTINUE DETOX
[2017-06-14] MEDS: diphenhydrAMINE HCL 50 MG CAPSULE PO PRN (22:55)
[2017-06-14] MEDS: THIAMINE HCL 100 MG TABLET (FP) PO SCH (22:56)
[2017-06-15] MEDS ORDERED: METHADONE HCL 10 MG TABLET (FOR DETOX USE ONLY) PO ONE (10:00)
--- NOTE | 2017-06-15 10:21 | PN ---
BHS Progress Note (SOAP) Subjective: alert,irritable,interrupted sleep Objective: 06/15/17 10:20 Vital Signs Temperature 97.7 F 06/15/17 10:15 Pulse Rate 88 06/15/17 10:15 Respiratory Rate 20 06/15/17 10:15 Blood Pressure 137/75 06/15/17 10:15 O2 Sat by Pulse Oximetry (%) Assessment: 06/15/17 10:20 withdrawal symptom Plan: continue detox,discharge in am
[2017-06-15] MEDS: ONDANSETRON *ODT* 4 MG TABLET SL PRN (10:37)
[2017-06-15] MEDS: cloNIDine HCL 0.1 MG TABLET PO SCH (10:37)
[2017-06-15] MEDS: NICOTINE 21 MG/24 HOURS TOPICAL PATCH TD SCH (10:37)
[2017-06-15] MEDS: CYCLOBENZAPRINE HCL 10 MG TABLET (FP) PO PRN (10:37)
[2017-06-15] MEDS: hydrOXYzine PAMOATE 25 MG CAPSULE (FP) PO PRN (10:37)
[2017-06-15] MEDS: PRENATAL VITAMINS W/ FOLIC ACID TABLET (FP) PO SCH (10:37)
[2017-06-15 18:00] VITALS: BP 91/52; PULSE 58; TEMP 98.1
[2017-06-16] MEDS ORDERED: METHADONE HCL 5 MG TABLET (FOR DETOX USE ONLY) PO ONE (06:00)
== END 2017-06-15 09:05 | disposition left against medical advice (07) | DRG 770 ==
LOC: YASAS 10:53 → Y6N 13:48
PROVIDERS: ADMIT Internal Medicine; ATTEND Internal Medicine
PROC: HZ2ZZZZ Detoxification Services for Substance Abuse Treatment (ICD-10-PCS; principal; 2017-06-11)
DX: F11.23 Opioid dependence with withdrawal (principal); F14.20 Cocaine dependence, uncomplicated; F17.213 Nicotine dependence, cigarettes, with withdrawal; B18.2 Chronic viral hepatitis C; L03.113 Cellulitis of right upper limb; Z87.898 Personal history of other specified conditions
CPT/HCPCS: 36415; 80053; 81003; 85027; 86593; 93005; 93010

== ENCOUNTER 2017-10-14 11:45 | Inpatient (IN) | payer OTHER ==
[2017-10-14 14:08] VITALS: BMI 21.7
--- NOTE | 2017-10-14 15:06 | HP ---
COWS - Scale Resting Pulse: 0= [place] 80 or Below Sweatin=Flushed/Facial Moisture Restless Observation: 0= Sits Still Pupil Size: 0= Normal to Room Light Bone or Joint Aches: 2= Severe Diffuse Aches Runny Nose/ Eye Tearin= Runny Nose/Eyes GI Upset > 30mins: 2= Nausea/Diarrhea Tremor Observation: 2= Slight Tremor Visible Yawning Observation: 2= >3x During Session Anxiety or Irritability: 2=Irritable/Anxious Goose Flesh Skin: 0=Smooth Skin COWS Score: 14 Admission ROS S - HPI Chief Complaint: I am here to detox off these drugs. Allergies/Adverse Reactions: Allergies Allergy/AdvReac Type Severity Reaction Status Date / Time No Known Allergies Allergy Verified 10/14/17 14:39 History of Present Illness: pt is a 47yr old male with a history of heroin and cocaine dependence seeking detox for treatment. Exam Limitations: No Limitations - Ebola screening Have you traveled outside of the country in the last 21 days: No Have you had contact with anyone from an Ebola affected area: No Have you been sick,other than usual withdrawal symptoms: No Do you have a fever: No - Review of Systems Constitutional: Chills, Diaphoresis, Loss of Appetite, Night Sweats, Unintentional Wgt. Loss EENT: reports: Tearing, Nose Congestion Respiratory: reports: No Symptoms reported Cardiac: reports: No Symptoms Reported GI: reports: Poor Appetite, Poor Fluid Intake : reports: No Symptoms Reported Musculoskeletal: reports: No Symptoms Reported Integumentary: reports: Erythema, Sweating Neuro: reports: Headache, Tingling, Tremors Endocrine: reports: Excessive Sweating, Flushing, Intolerance to Cold, Intolerance to Heat Hematology: reports: No Symptoms Reported Psychiatric: reports: Judgement Intact, Mood/Affect Appropiate, Orientated x3, Agitated, Anxious Other Systems: Reviewed and Negative Patient History - Patient Medical History Hx Anemia: No Hx Asthma: No Hx Chronic Obstructive Pulmonary Disease (COPD): No Hx Cancer: No Hx Cardiac Disorders: No Hx Hypertension: No Hx Hypercholesterolemia: No Hx Pacemaker: No HX Cerebrovascular Accident: No Hx Seizures: No Hx Dementia: No Hx Diabetes: No Hx Gastrointestinal Disorders: No Hx Liver Disease: No Hx Genitourinary Disorders: No Hx Sexually Transmitted Disorders: No Hx Renal Disease (ESRD): No Hx Thyroid Disease: No Hx Human Immunodeficiency Virus (HIV): No (last 10/09 negative) Hx Hepatitis C: Yes (treated with harvoni) Hx Depression: No Hx Suicide Attempt: No (denies) Hx Bipolar Disorder: No Hx Schizophrenia: No - Patient Surgical History Past Surgical History: No - PPD History Previous Implant?: Yes Documented Results: Negative w/proof Implanted On Prior R Admission?: Yes Date: 04/02/17 PPD to be Administered?: No - Reproductive History Patient is a Female of Child Bearing Age (11 -55 yrs old): No - Smoking Cessation Smoking history: Current every day smoker Have you smoked in the past 12 months: Yes Aproximately how many cigarettes per day: 5 Hx Chewing Tobacco Use: No Initiated information on smoking cessation: Yes 'Breaking Loose' booklet given: 10/14/17 - Substance & Tx. History Hx Alcohol Use: No Hx Substance Use: Yes Substance Use Type: Cocaine, Heroin Hx Substance Use Treatment: Yes (last detox 03/2017) Family Disease History - Family Disease History Family History: Denies Admission Physical Exam S - Vital Signs Vital Signs: Vital Signs - 24 hr 10/14/17 14:03 Temperature 97.9 F Pulse Rate 67 Respiratory 16 Rate Blood Pressure 95/59 - Physical General Appearance: Yes: Appropriately Dressed, Moderate Distress, Thin, Tremorous, Irritable, Sweating HEENTM: Yes: Hearing grossly Normal, Normal Voice, Nasal Congestion, Rhinorrhea Respiratory: Yes: Lungs Clear, Normal Breath Sounds, No Respiratory Distress Neck: Yes: No masses,lesions,Nodules Breast: Yes: Within Normal Limits Cardiology: Yes: Regular Rhythm, Regular Rate, S1, S2 Abdominal: Yes: Normal Bowel Sounds, Non Tender, Soft Genitourinary: Yes: Within Normal Limits Back: Yes: Normal Inspection Musculoskeletal: Yes: full range of Motion Extremities: Yes: Normal Capillary Refill, Non-Tender, Tremors Neurological: Yes: Fully Oriented, Alert, Normal Response Integumentary: Yes: Normal Color, Diaphoresis, Track [place] Lymphatic: Yes: Within Normal Limits - Diagnostic (1) Cocaine dependence Current Visit: Yes Status: Chronic Qualifiers: Substance use status: uncomplicated (2) Opioid dependence with withdrawal Current Visit: Yes Status: Chronic (3) Weight loss Current Visit: Yes Status: Acute (4) Hepatitis C Current Visit: Yes Status: Chronic Qualifiers: Viral hepatitis chronicity: chronic Hepatic coma status: without hepatic coma Qualified Code(s): B18.2 - Chronic viral hepatitis C (5) Nicotine dependence Current Visit: No Status: Chronic Qualifiers: Nicotine product type: cigarettes Substance use status: uncomplicated Qualified Code(s): F17.210 - Nicotine dependence, cigarettes, uncomplicated Cleared for Admission BHS - Detox or Rehab [facility] Level of Care: Medically Managed Detox Regimen/Protocol: Methadone [facility] Breath Alcohol Content Breath Alcohol Content: 0 Urine Drug Screen - Results Drug Screen Negative: No Urine Drug Screen Results: COLT-Cocaine, OPI-Opiates, OXY-Oxycodone
[2017-10-14] MEDS ORDERED: guaiFENesin/D-METHORPHAN HB 10 ML UNIT-DOSE CUPS PO PRN (15:08)
[2017-10-14] MEDS ORDERED: P-EPHED 60MG/TRIPROLIDI 2.5MG TABLET PO PRN (15:08)
[2017-10-14] MEDS ORDERED: NICOTINE POLACRILEX 4 MG GUM BC PRN (15:08)
[2017-10-14] MEDS ORDERED: MAG HYDROX/AL HYDROX/SIMETH 30 ML UNIT-DOSE CUP PO PRN (15:08)
[2017-10-14] MEDS ORDERED: MAGNESIUM CITRATE 300 ML BOTTLE PO PRN (15:08)
[2017-10-14] MEDS ORDERED: IBUPROFEN 400 MG TABLET (FP) PO PRN (15:08)
[2017-10-14] MEDS ORDERED: MENTHOL/PHENOL 1 EACH UD MM PRN (15:08)
[2017-10-14] MEDS ORDERED: hydrOXYzine PAMOATE 50 MG CAPSULE (FP) PO PRN (15:08)
[2017-10-14] MEDS ORDERED: LOPERAMIDE HCL 2 MG CAPSULE PO PRN (15:08)
[2017-10-14] MEDS ORDERED: ACETAMINOPHEN 325 MG TABLET (FP) PO PRN (15:08)
[2017-10-14] MEDS ORDERED: MAGNESIUM HYDROX 2400MG/30ML ORAL SUSPENSION 30 ML CUP PO PRN (15:08)
[2017-10-14] MEDS ORDERED: METHADONE HCL 10 MG TABLET (FOR DETOX USE ONLY) PO ONE ×2 (18:15→23:00)
[2017-10-14] MEDS: diazePAM 5 MG TABLET PO PRN (18:56)
[2017-10-14 22:54] LABS: URINE APPEARANCE CLEAR; URINE BILIRUBIN NEGATIVE (NEGATIVE); URINE BLOOD NEGATIVE (NEGATIVE); URINE COLOR YELLOW; URINE GLUCOSE (UA) NEGATIVE (NEGATIVE); URINE KETONE NEGATIVE (NEGATIVE); URINE LEUK ESTERASE NEGATIVE (NEGATIVE); URINE NITRITE NEGATIVE (NEGATIVE); URINE PROTEIN NEGATIVE (NEGATIVE); URINE UROBILINOGEN NEGATIVE mg/dL (0.2-1.0)
[2017-10-14] MEDS: THIAMINE HCL 100 MG TABLET (FP) PO SCH (23:33)
[2017-10-15] MEDS: diazePAM 5 MG TABLET PO PRN ×3 (05:28→22:18)
[2017-10-15] MEDS ORDERED: METHADONE HCL 10 MG TABLET (FOR DETOX USE ONLY) PO ONE (10:00)
--- NOTE | 2017-10-15 10:17 | PN ---
BHS COWS - Scale Resting Pulse: 0= [place] 80 or Below Sweatin= Chills/Flushing Restless Observation: 3= Extraneous Movement Pupil Size: 1= Pupils >than Normal Bone or Joint Aches: 2= Severe Diffuse Aches Runny Nose/ Eye Tearin= Runny Nose/Eyes GI Upset > 30mins: 2= Nausea/Diarrhea Tremor Observation of Outstretched Hands: 2= Slight Tremor Visible Yawning Observation: 1= 1-2x During Session Anxiety or Irritability: 2=Irritable/Anxious Goose Flesh Skin: 0=Smooth Skin COWS Score: 16 S Progress Note (SOAP) Subjective: ALERT,IRRITABLE,ANXIOUS,INTERRUPTED SLEEP,TREMOR,PAIN IN THE BODY AND BACK Objective: 10/15/17 10:14 Vital Signs Temperature 97.7 F 10/15/17 06:46 Pulse Rate 72 10/15/17 06:46 Respiratory Rate 18 10/15/17 06:46 Blood Pressure 129/61 10/15/17 06:46 O2 Sat by Pulse Oximetry (%) EKG NSR WITH SINUS ARRHYTHMIA,NON SPECIFIC T WAVE NO CHEST PAIN,NO SOB,NO DIZZINESS Laboratory Last Values Urine Color Yellow 10/14/17 Unknown Urine Appearance Clear 10/14/17 Unknown Urine pH 5.0 (5.0-8.0) 10/14/17 Unknown Ur Specific [place] 1.029 (1.001-1.035) 10/14/17 Unknown Urine Protein Negative (NEGATIVE) 10/14/17 Unknown Urine Glucose (UA) Negative (NEGATIVE) 10/14/17 Unknown Urine Ketones Negative (NEGATIVE) 10/14/17 Unknown Urine Blood Negative (NEGATIVE) 10/14/17 Unknown Urine Nitrite Negative (NEGATIVE) 10/14/17 Unknown Urine Bilirubin Negative (NEGATIVE) 10/14/17 Unknown Urine Urobilinogen Negative mg/dL (0.2-1.0) 10/14/17 Unknown Ur Leukocyte Esterase Negative (NEGATIVE) 10/14/17 Unknown LABS PENDING Assessment: 10/15/17 10:16 WITHDRAWAL SYMPTOM Plan: CONTINUE DETOX
[2017-10-15 10:29] LABS: CHLORIDE 102 mmol/L (98-107); HEMATOCRIT 39.7 % (35.4-49); HEMOGLOBIN 13.1 GM/dL (11.7-16.9); MCH 29.3 pg (25.7-33.7); MEAN CELL VOLUME 88.9 fl (80-96); MEAN PLT VOLUME 9.1 fl (7.5-11.1); PLATELET COUNT 243 K/MM3 (134-434); POTASSIUM 4.3 mmol/L (3.5-5.1); RBC 4.46 M/mm3 (4.00-5.60); RDW 13.9 % (11.9-15.9); SODIUM 141 mmol/L (136-145); WHITE BLOOD COUNT 7.5 K/mm3 (4.0-10.0)
[2017-10-15] MEDS: PRENATAL VITAMINS W/ FOLIC ACID TABLET (FP) PO SCH (10:38)
[2017-10-15 10:43] LABS: ALBUMIN 3.6 g/dl (3.4-5.0); ALK PHOS 72 U/L (45-117); ANION GAP 11 (8-16); BILIRUBIN,TOTAL 0.5 mg/dL (0.2-1.0); BLOOD UREA NITROGEN 21 mg/dL (7-18); CALCIUM 9.5 mg/dL (8.5-10.1); CO2 28 mmol/L (21-32); GLUCOSE,RANDOM 98 mg/dL (74-106); SGOT/AST 46 U/L (15-37); SGPT/ALT 46 U/L (12-78); TOT PROT 7.6 g/dl (6.4-8.2)
[2017-10-15] MEDS: NICOTINE 21 MG/24 HOURS TOPICAL PATCH TD SCH (11:55)
[2017-10-15] MEDS: THIAMINE HCL 100 MG TABLET (FP) PO SCH (22:18)
[2017-10-16] MEDS ORDERED: TRIMETHOBENZAMIDE HCL 200MG/2ML INJ IM PRN (02:52)
[2017-10-16] MEDS ORDERED: METHADONE HCL 5 MG TABLET (FOR DETOX USE ONLY) PO ONE (10:00)
[2017-10-16] MEDS: PRENATAL VITAMINS W/ FOLIC ACID TABLET (FP) PO SCH (10:31)
[2017-10-16] MEDS: NICOTINE 21 MG/24 HOURS TOPICAL PATCH TD SCH (10:32)
[2017-10-16] MEDS: diazePAM 5 MG TABLET PO PRN ×2 (17:52→22:02)
--- NOTE | 2017-10-16 19:16 | PN ---
BHS COWS - Scale Resting Pulse: 0= [place] 80 or Below Sweatin=Flushed/Facial Moisture Restless Observation: 1= Difficult to Sit Still Pupil Size: 0= Normal to Room Light Bone or Joint Aches: 1= Mild Discomfort Runny Nose/ Eye Tearin= Nasal Congestion GI Upset > 30mins: 1= Stomach Cramp Tremor Observation of Outstretched Hands: 2= Slight Tremor Visible Yawning Observation: 1= 1-2x During Session Anxiety or Irritability: 2=Irritable/Anxious Goose Flesh Skin: 0=Smooth Skin COWS Score: 11 S Progress Note (SOAP) Subjective: sleeping, but arouses to verbal prompt tremulous Vital Signs Temperature 99.0 F 10/16/17 18:10 Pulse Rate 61 10/16/17 18:10 Respiratory Rate 18 10/16/17 18:10 Blood Pressure 146/75 10/16/17 18:10 O2 Sat by Pulse Oximetry (%) Laboratory Last Values WBC 7.5 K/mm3 (4.0-10.0) 10/15/17 06:00 RBC 4.46 M/mm3 (4.00-5.60) 10/15/17 06:00 Hgb 13.1 GM/dL (11.7-16.9) 10/15/17 06:00 Hct 39.7 % (35.4-49) 10/15/17 06:00 MCV 88.9 fl (80-96) 10/15/17 06:00 MCH 29.3 pg (25.7-33.7) 10/15/17 06:00 MCHC 33.0 g/dl (32.0-35.9) 10/15/17 06:00 RDW 13.9 % (11.9-15.9) 10/15/17 06:00 Plt Count 243 K/MM3 (134-434) 10/15/17 06:00 MPV 9.1 fl (7.5-11.1) 10/15/17 06:00 Sodium 141 mmol/L (136-145) 10/15/17 06:00 Potassium 4.3 mmol/L (3.5-5.1) 10/15/17 06:00 Chloride 102 mmol/L (98-107) 10/15/17 06:00 Carbon Dioxide 28 mmol/L (21-32) 10/15/17 06:00 Anion Gap 11 (8-16) 10/15/17 06:00 BUN 21 mg/dL (7-18) H 10/15/17 06:00 Creatinine 1.0 mg/dL (0.7-1.3) 10/15/17 06:00 Creat Clearance w eGFR > 60 (>60) 10/15/17 06:00 Random Glucose 98 mg/dL (74-106) 10/15/17 06:00 Calcium 9.5 mg/dL (8.5-10.1) 10/15/17 06:00 Total Bilirubin 0.5 mg/dL (0.2-1.0) 10/15/17 06:00 AST 46 U/L (15-37) H D 10/15/17 06:00 ALT 46 U/L (12-78) D 10/15/17 06:00 Alkaline Phosphatase 72 U/L (45-117) 10/15/17 06:00 Total Protein 7.6 g/dl (6.4-8.2) 10/15/17 06:00 Albumin 3.6 g/dl (3.4-5.0) 10/15/17 06:00 Urine Color Yellow 10/14/17 Unknown Urine Appearance Clear 10/14/17 Unknown Urine pH 5.0 (5.0-8.0) 10/14/17 Unknown Ur Specific [place] 1.029 (1.001-1.035) 10/14/17 Unknown Urine Protein Negative (NEGATIVE) 10/14/17 Unknown Urine Glucose (UA) Negative (NEGATIVE) 10/14/17 Unknown Urine Ketones Negative (NEGATIVE) 10/14/17 Unknown Urine Blood Negative (NEGATIVE) 10/14/17 Unknown Urine Nitrite Negative (NEGATIVE) 10/14/17 Unknown Urine Bilirubin Negative (NEGATIVE) 10/14/17 Unknown Urine Urobilinogen Negative mg/dL (0.2-1.0) 10/14/17 Unknown Ur Leukocyte Esterase Negative (NEGATIVE) 10/14/17 Unknown RPR Titer Nonreactive (NONREACTIVE) 10/15/17 06:00 labs noted Plan- continue detox increase hydration
[2017-10-16] MEDS: THIAMINE HCL 100 MG TABLET (FP) PO SCH (22:01)
[2017-10-17] MEDS ORDERED: METHADONE HCL 5 MG TABLET (FOR DETOX USE ONLY) PO ONE (10:00)
--- NOTE | 2017-10-17 10:55 | PN ---
BHS Progress Note (SOAP) Subjective: joint aches irritable tremor anxiety sweat Objective: 10/17/17 10:54 Vital Signs Temperature 98.4 F 10/17/17 06:00 Pulse Rate 68 10/17/17 06:00 Respiratory Rate 18 10/17/17 06:00 Blood Pressure 148/85 10/17/17 06:00 O2 Sat by Pulse Oximetry (%) Laboratory Last Values WBC 7.5 K/mm3 (4.0-10.0) 10/15/17 06:00 RBC 4.46 M/mm3 (4.00-5.60) 10/15/17 06:00 Hgb 13.1 GM/dL (11.7-16.9) 10/15/17 06:00 Hct 39.7 % (35.4-49) 10/15/17 06:00 MCV 88.9 fl (80-96) 10/15/17 06:00 MCH 29.3 pg (25.7-33.7) 10/15/17 06:00 MCHC 33.0 g/dl (32.0-35.9) 10/15/17 06:00 RDW 13.9 % (11.9-15.9) 10/15/17 06:00 Plt Count 243 K/MM3 (134-434) 10/15/17 06:00 MPV 9.1 fl (7.5-11.1) 10/15/17 06:00 Sodium 141 mmol/L (136-145) 10/15/17 06:00 Potassium 4.3 mmol/L (3.5-5.1) 10/15/17 06:00 Chloride 102 mmol/L (98-107) 10/15/17 06:00 Carbon Dioxide 28 mmol/L (21-32) 10/15/17 06:00 Anion Gap 11 (8-16) 10/15/17 06:00 BUN 21 mg/dL (7-18) H 10/15/17 06:00 Creatinine 1.0 mg/dL (0.7-1.3) 10/15/17 06:00 Creat Clearance w eGFR > 60 (>60) 10/15/17 06:00 Random Glucose 98 mg/dL (74-106) 10/15/17 06:00 Calcium 9.5 mg/dL (8.5-10.1) 10/15/17 06:00 Total Bilirubin 0.5 mg/dL (0.2-1.0) 10/15/17 06:00 AST 46 U/L (15-37) H D 10/15/17 06:00 ALT 46 U/L (12-78) D 10/15/17 06:00 Alkaline Phosphatase 72 U/L (45-117) 10/15/17 06:00 Total Protein 7.6 g/dl (6.4-8.2) 10/15/17 06:00 Albumin 3.6 g/dl (3.4-5.0) 10/15/17 06:00 Urine Color Yellow 10/14/17 Unknown Urine Appearance Clear 10/14/17 Unknown Urine pH 5.0 (5.0-8.0) 10/14/17 Unknown Ur Specific [place] 1.029 (1.001-1.035) 10/14/17 Unknown Urine Protein Negative (NEGATIVE) 10/14/17 Unknown Urine Glucose (UA) Negative (NEGATIVE) 10/14/17 Unknown Urine Ketones Negative (NEGATIVE) 10/14/17 Unknown Urine Blood Negative (NEGATIVE) 10/14/17 Unknown Urine Nitrite Negative (NEGATIVE) 10/14/17 Unknown Urine Bilirubin Negative (NEGATIVE) 10/14/17 Unknown Urine Urobilinogen Negative mg/dL (0.2-1.0) 10/14/17 Unknown Ur Leukocyte Esterase Negative (NEGATIVE) 10/14/17 Unknown RPR Titer Nonreactive (NONREACTIVE) 10/15/17 06:00 lab noted Assessment: 10/17/17 10:55 withdrawal sx Plan: continue detox
[2017-10-17] MEDS: NICOTINE 21 MG/24 HOURS TOPICAL PATCH TD SCH (11:13)
[2017-10-17] MEDS: PRENATAL VITAMINS W/ FOLIC ACID TABLET (FP) PO SCH (11:13)
[2017-10-17] MEDS: THIAMINE HCL 100 MG TABLET (FP) PO SCH (23:50)
--- NOTE | 2017-10-18 08:59 | PN ---
[facility] Progress Note Note: PATIENT IS STABLE FOR DISCHARGE TODAY,STATED HE HAS TO GO TO WORK TODAY,SEEN BY COUNSELOR
--- NOTE | 2017-10-18 09:02 | DS ---
[facility] Detox Discharge Summary Admission Date: 10/14/17 Discharge Date: 10/18/17 - History Present History: Cocaine Dependence, Opioid Dependence Additional Comments: FOLLOW UP WITH AFTER CARE PROGRAM ARRANGEMENT,PATIENT IS STABLE FOR DISCHARGE ,STATED HE HAS TO GO TO WORK,SEEN BY COUNSELOR Pertinent Past History: HEPATITIS C WEIGHT LOSS NICOTINE DEPENDENCE - Physical Exam Results Vital Signs: Vital Signs Temperature 97.4 F L 10/18/17 06:03 Pulse Rate 60 10/18/17 06:03 Respiratory Rate 18 10/18/17 06:03 Blood Pressure 129/71 10/18/17 06:03 O2 Sat by Pulse Oximetry (%) Pertinent Admission Physical Exam Findings: WITHDRAWAL SYMPTOM AND FINDING - Treatment Hospital Course: Detox Protocol Followed, Detoxed Safely, Discharged Condition Good Patient has Accepted a Rehab Referral to: DECLINED - Medication Discharge Medications: Ambulatory Orders NK [No Known Home Medication] 03/31/17 - Diagnosis (1) Opioid dependence with withdrawal Current Visit: Yes Status: Chronic (2) Weight loss Current Visit: Yes Status: Acute (3) Cocaine dependence Current Visit: Yes Status: Chronic Qualifiers: Substance use status: uncomplicated (4) Hepatitis C Current Visit: Yes Status: Chronic Qualifiers: Viral hepatitis chronicity: chronic Hepatic coma status: without hepatic coma Qualified Code(s): B18.2 - Chronic viral hepatitis C (5) Nicotine dependence Current Visit: No Status: Chronic Qualifiers: Nicotine product type: cigarettes Substance use status: uncomplicated Qualified Code(s): F17.210 - Nicotine dependence, cigarettes, uncomplicated - AMA Did Patient Leave Against Medical Advice: No
[2017-10-18] MEDS: PRENATAL VITAMINS W/ FOLIC ACID TABLET (FP) PO SCH (09:26)
[2017-10-18] MEDS: NICOTINE 21 MG/24 HOURS TOPICAL PATCH TD SCH (09:27)
[2017-10-18] MEDS ORDERED: METHADONE HCL 10 MG TABLET (FOR DETOX USE ONLY) PO ONE (10:00)
[2017-10-18 10:56] VITALS: BP 118/77; PULSE 72; TEMP 98.4
[2017-10-19] MEDS ORDERED: METHADONE HCL 5 MG TABLET (FOR DETOX USE ONLY) PO ONE (06:00)
--- NOTE | 2017-10-19 13:38 | EKG ---
Test Reason : Blood Pressure : / mmHG Vent. Rate : 064 BPM Atrial Rate : 064 BPM P-R Int : 154 ms QRS Dur : 070 ms QT Int : 394 ms P-R-T Axes : 055 057 -66 degrees QTc Int : 406 ms NORMAL SINUS RHYTHM WITH SINUS ARRHYTHMIA NONSPECIFIC T WAVE ABNORMALITY ABNORMAL ECG WHEN COMPARED WITH ECG OF 11-JUN-2017 14:12, MINIMAL CRITERIA FOR SEPTAL INFARCT ARE NO LONGER PRESENT NONSPECIFIC T WAVE ABNORMALITY NOW EVIDENT IN LATERAL LEADS Confirmed by MD Barros Daniel ([id number]) on 10/19/2017 1:38:24 PM Referred By: Confirmed By:Omar Barros MD
== END 2017-10-18 09:51 | disposition home or self-care (01) | DRG 773 ==
LOC: YASAS 11:45 → Y6N 17:51
PROVIDERS: ADMIT Internal Medicine; ATTEND Internal Medicine
PROC: HZ2ZZZZ Detoxification Services for Substance Abuse Treatment (ICD-10-PCS; principal; 2017-10-14)
DX: F11.23 Opioid dependence with withdrawal (principal); F14.20 Cocaine dependence, uncomplicated; F17.210 Nicotine dependence, cigarettes, uncomplicated; B18.2 Chronic viral hepatitis C; R63.4 Abnormal weight loss; Z68.21 Body mass index [BMI] 21.0-21.9, adult
CPT/HCPCS: 36415; 80053; 81003; 85027; 86593; 93005; 93010

== ENCOUNTER 2018-06-17 12:04 | Inpatient (IN) | payer OTHER ==
[2018-06-17 15:07] VITALS: BMI 22.1
--- NOTE | 2018-06-17 16:24 | HP ---
COWS - Scale Resting Pulse: 0= MA 80 or Below Sweatin= No chills or Flushing Restless Observation: 0= Sits Still Pupil Size: 0= Normal to Room Light Bone or Joint Aches: 0= None Runny Nose/ Eye Tearin= None GI Upset > 30mins: 0= None Tremor Observation: 0= None Yawning Observation: 0= None Anxiety or Irritability: 0= None Goose Flesh Skin: 0=Smooth Skin COWS Score: 0 Admission ROS S - HPI Allergies/Adverse Reactions: Allergies Allergy/AdvReac Type Severity Reaction Status Date / Time No Known Allergies Allergy Verified 06/17/18 16:45 History of Present Illness: pt here requesting detox from heroin use , reports 1 gr /day ivdu in [facility] , latest use this morning 1/2 gram " i feel fine " denies any symptoms at this time , reports he gets needles from the needle exchange, denies sharing , + re- using sometimes , + abscess in the past, most recently 2012 , OD x 8 , most recently 1 yr ago June , Narcan by a friend . Pt falls asleep frequently during interview, easily awakened by verbal stimuli . APpears irritable when questioned about substance use . Most recent detox Jun 2018 at this facility . utox + kerry , + fen , + opi cocaine : 20 $ /day IVDU fentanyl - denies etoh : " a beer here and there " tobacco : 5-10 cigs/ day , requesting nrt w/ patch . Pmhx : denies PShx : denies Psych : denies Meds : denies - Ebola screening Have you traveled outside of the country in the last 21 days: No Have you had contact with anyone from an Ebola affected area: No Have you been sick,other than usual withdrawal symptoms: No Do you have a fever: No - Review of Systems Constitutional: No Symptoms Reported EENT: reports: No Symptoms Reported Respiratory: reports: No Symptoms reported Cardiac: reports: No Symptoms Reported GI: reports: No Symptoms Reported : reports: No Symptoms Reported Musculoskeletal: reports: No Symptoms Reported Integumentary: reports: No Symptoms Reported Neuro: reports: No Symptoms reported Endocrine: reports: No Symptoms Reported Hematology: reports: No Symptoms Reported Psychiatric: reports: No Sypmtoms Reported, Judgement Intact, Orientated x3 Other Systems: Reviewed and Negative Patient History - Patient Medical History Hx Anemia: No Hx Asthma: No Hx Chronic Obstructive Pulmonary Disease (COPD): No Hx Cancer: No Hx Cardiac Disorders: No Hx Hypertension: No Hx Hypercholesterolemia: No Hx Pacemaker: No HX Cerebrovascular Accident: No Hx Seizures: No Hx Dementia: No Hx Diabetes: No Hx Gastrointestinal Disorders: No Hx Liver Disease: No Hx Genitourinary Disorders: No Hx Sexually Transmitted Disorders: No Hx Renal Disease (ESRD): No Hx Thyroid Disease: No Hx Human Immunodeficiency Virus (HIV): No (last 10/09 negative) Hx Hepatitis C: Yes (treated with harvoni) Hx Depression: No Hx Suicide Attempt: No (denies) Hx Bipolar Disorder: No Hx Schizophrenia: No - Patient Surgical History Past Surgical History: No Hx Neurologic Surgery: No Hx Cataract Extraction: No Hx Cardiac Surgery: No Hx Lung Surgery: No Hx Breast Surgery: No Hx Breast Biopsy: No Hx Abdominal Surgery: No Hx Appendectomy: No Hx Cholecystectomy: No Hx Genitourinary Surgery: No Hx Section: No Hx Orthopedic Surgery: No Anesthesia Reaction: No - PPD History Date: 04/02/17 Results: 0 mm - Smoking Cessation Smoking history: Current every day smoker Have you smoked in the past 12 months: Yes Aproximately how many cigarettes per day: 5 Hx Chewing Tobacco Use: No Initiated information on smoking cessation: No - Substances Abused Alcohol Route: Oral Frequency: Daily Amount used: LIQUOR- 1 PINT, BEER- 1 SIX PACK Age of first use: 20 Date of Last Use: 06/17/18 Heroin Route: Injection Frequency: Daily Amount used: 1gm Age of first use: 30 Date of Last Use: 06/17/18 Family Disease History - Family Disease History Family Disease History: Diabetes: Sister Admission Physical Exam S - Vital Signs Vital Signs: Vital Signs - 24 hr 06/17/18 15:06 Temperature 96.2 F L Pulse Rate 79 Respiratory 18 Rate Blood Pressure 141/84 - Physical General Appearance: Yes: Intoxicated HEENTM: Yes: EOMI, Hearing grossly Normal, Normocephalic, Normal Voice Respiratory: Yes: Chest Non-Tender, Lungs Clear, Normal Breath Sounds Neck: Yes: No masses,lesions,Nodules Breast: Yes: Breast Exam Deferred Cardiology: Yes: Regular Rhythm, Regular Rate Abdominal: Yes: Normal Bowel Sounds, Non Tender, Flat, Soft Genitourinary: Yes: Within Normal Limits Back: Yes: Normal Inspection Musculoskeletal: Yes: full range of Motion Extremities: Yes: Normal Capillary Refill, Normal Inspection, Normal Range of Motion Neurological: Yes: Other (drowsy) Integumentary: Yes: Dry, Warm, Erythema, Track Scott, Other (right forearm area of edema/ erythema up to elbow around area of trakc scott recent use demonstrated w/ excoriation , dried blood , no induration) - Diagnostic (1) Opioid abuse with intoxication Current Visit: Yes Status: Acute (2) Cocaine dependence Current Visit: No Status: Chronic Qualifiers: Substance use status: uncomplicated Qualified Code(s): F14.20 - Cocaine dependence, uncomplicated (3) Nicotine dependence Current Visit: No Status: Chronic Qualifiers: Nicotine product type: cigarettes Substance use status: uncomplicated Qualified Code(s): F17.210 - Nicotine dependence, cigarettes, uncomplicated BHS Breath Alcohol Content Breath Alcohol Content: 0 Urine Drug Screen - Results Drug Screen Negative: No Urine Drug Screen Results: KERRY-Cocaine, OPI-Opiates, FEN-Fentanyl
[2018-06-17] MEDS ORDERED: MENTHOL/PHENOL 1 EACH UD MM PRN (16:31)
[2018-06-17] MEDS ORDERED: P-EPHED 60MG/TRIPROLIDI 2.5MG TABLET PO PRN (16:31)
[2018-06-17] MEDS ORDERED: IBUPROFEN 400 MG TABLET (FP) PO PRN (16:31)
[2018-06-17] MEDS ORDERED: ACETAMINOPHEN 325 MG TABLET (FP) PO PRN (16:31)
[2018-06-17] MEDS ORDERED: MAGNESIUM HYDROX 2400MG/30ML ORAL SUSPENSION 30 ML CUP PO PRN (16:31)
[2018-06-17] MEDS ORDERED: guaiFENesin/D-METHORPHAN HB 10 ML UNIT-DOSE CUPS PO PRN (16:31)
[2018-06-17] MEDS ORDERED: MAGNESIUM CITRATE 300 ML BOTTLE PO PRN (16:31)
[2018-06-17] MEDS ORDERED: MAG HYDROX/AL HYDROX/SIMETH 30 ML UNIT-DOSE CUP PO PRN (16:31)
[2018-06-17] MEDS: NICOTINE 7 MG/24 HOURS TOPICAL PATCH TD SCH (17:56)
[2018-06-17] MEDS ORDERED: METHADONE HCL 10 MG TABLET (FOR DETOX USE ONLY) PO ONE (22:12)
--- NOTE | 2018-06-17 22:12 | PN ---
BHS COWS - Scale Resting Pulse: 0= [place] 80 or Below Sweatin= Chills/Flushing Restless Observation: 3= Extraneous Movement Pupil Size: 2= Moderately Dilated Bone or Joint Aches: 1= Mild Discomfort Runny Nose/ Eye Tearin= Nasal Congestion GI Upset > 30mins: 1= Stomach Cramp Tremor Observation of Outstretched Hands: 2= Slight Tremor Visible Yawning Observation: 0= None Anxiety or Irritability: 2=Irritable/Anxious Goose Flesh Skin: 0=Smooth Skin COWS Score: 13 BHS Progress Note (SOAP) Subjective: C/o withdrawal symptoms. States has achy bones, shakes, and abd cramps. Objective: Pupils at 4 mm. Alert and oriented. pacing floors and complaining. Vital Signs 06/17/18 06/17/18 15:06 18:00 Temperature 96.2 F L 96.6 F L Pulse Rate 79 74 Respiratory 18 18 Rate Blood Pressure 141/84 128/81 Assessment: Opiate withdrawal. Plan: Give methadone 10 mg Po HS, then continue with orders, as previously prescribed.
[2018-06-17] MEDS: SULFAMETHOXAZOLE/TRIMETHOPRIM 800MG/160MG D.S. TABLET PO SCH (22:23)
[2018-06-17] MEDS: MELATONIN 5 MG TABLETS PO PRN (22:23)
[2018-06-17] MEDS: THIAMINE HCL 100 MG TABLET (FP) PO SCH (22:24)
[2018-06-18] MEDS ORDERED: METHADONE HCL 10 MG TABLET (FOR DETOX USE ONLY) PO ONE (10:00)
[2018-06-18] MEDS: PRENATAL VITAMINS W/ FOLIC ACID TABLET (FP) PO SCH (10:05)
[2018-06-18] MEDS: SULFAMETHOXAZOLE/TRIMETHOPRIM 800MG/160MG D.S. TABLET PO SCH ×2 (10:05→22:07)
[2018-06-18] MEDS: NICOTINE 7 MG/24 HOURS TOPICAL PATCH TD SCH (10:06)
[2018-06-18 10:29] LABS: HEMATOCRIT 39.4 % (35.4-49); HEMOGLOBIN 12.9 GM/dL (11.7-16.9); MCHC 32.8 g/dl (32.0-35.9); MEAN CELL VOLUME 85.4 fl (80-96); MEAN PLT VOLUME 8.4 fl (7.5-11.1); PLATELET COUNT 172 K/MM3 (134-434); RBC 4.62 M/mm3 (4.00-5.60); RDW 14.9 % (11.9-15.9); WHITE BLOOD COUNT 4.8 K/mm3 (4.0-10.0)
[2018-06-18 10:53] LABS: ALBUMIN 3.3 g/dl (3.4-5.0); ALK PHOS 75 U/L (45-117); ANION GAP 8 MMOL/L (8-16); BILIRUBIN,TOTAL 0.3 mg/dL (0.2-1); BLOOD UREA NITROGEN 17 mg/dL (7-18); CALCIUM 8.7 mg/dL (8.5-10.1); CHLORIDE 106 mmol/L (98-107); CO2 29 mmol/L (21-32); CREATININE 0.8 mg/dL (0.55-1.3); GLUCOSE,RANDOM 74 mg/dL (74-106); POTASSIUM 4.2 mmol/L (3.5-5.1); SGOT/AST 39 U/L (15-37); SGPT/ALT 44 U/L (13-61); SODIUM 142 mmol/L (136-145); TOT PROT 6.6 g/dl (6.4-8.2)
[2018-06-18 13:17] LABS: URINE APPEARANCE CLOUDY; URINE BILIRUBIN NEGATIVE (<2.0 mg/dL); URINE COLOR YELLOW; URINE GLUCOSE (UA) NEGATIVE (NEGATIVE); URINE KETONE NEGATIVE (NEGATIVE); URINE LEUK ESTERASE NEGATIVE (NEGATIVE); URINE NITRITE NEGATIVE (NEGATIVE); URINE PROTEIN NEGATIVE (NEGATIVE); URINE UROBILINOGEN NEGATIVE mg/dL (0.2-1.0)
--- NOTE | 2018-06-18 14:46 | EKG ---
Test Reason : Blood Pressure : / mmHG Vent. Rate : 072 BPM Atrial Rate : 072 BPM P-R Int : 144 ms QRS Dur : 070 ms QT Int : 418 ms P-R-T Axes : 058 043 -77 degrees QTc Int : 457 ms NORMAL SINUS RHYTHM WITH SINUS ARRHYTHMIA T WAVE ABNORMALITY, CONSIDER INFERIOR ISCHEMIA ABNORMAL ECG Confirmed by MD Kylie, Scottie ([id number]) on 06/18/2018 2:46:36 PM Referred By: Confirmed By:Scottie Espinal MD
--- NOTE | 2018-06-18 15:27 | PN ---
BHS COWS - Scale Resting Pulse: 1= [place] 81-100 Sweatin= Chills/Flushing Restless Observation: 1= Difficult to Sit Still Pupil Size: 0= Normal to Room Light Bone or Joint Aches: 1= Mild Discomfort Runny Nose/ Eye Tearin= Runny Nose/Eyes GI Upset > 30mins: 0= None Tremor Observation of Outstretched Hands: 1= Tremor [place], Not Seen Yawning Observation: 2= >3x During Session Anxiety or Irritability: 2=Irritable/Anxious Goose Flesh Skin: 0=Smooth Skin COWS Score: 11 BHS Progress Note (SOAP) Subjective: anxious , interrupted sleep, chills Objective: 06/18/18 15:25 Vital Signs Temperature 97.8 F 06/18/18 14:01 Pulse Rate 87 06/18/18 14:01 Respiratory Rate 18 06/18/18 14:01 Blood Pressure 141/93 06/18/18 14:01 O2 Sat by Pulse Oximetry (%) Laboratory Last Values WBC 4.8 K/mm3 (4.0-10.0) 06/18/18 08:00 RBC 4.62 M/mm3 (4.00-5.60) 06/18/18 08:00 Hgb 12.9 GM/dL (11.7-16.9) 06/18/18 08:00 Hct 39.4 % (35.4-49) 06/18/18 08:00 MCV 85.4 fl (80-96) 06/18/18 08:00 MCH 28.0 pg (25.7-33.7) 06/18/18 08:00 MCHC 32.8 g/dl (32.0-35.9) 06/18/18 08:00 RDW 14.9 % (11.9-15.9) 06/18/18 08:00 Plt Count 172 K/MM3 (134-434) D 06/18/18 08:00 MPV 8.4 fl (7.5-11.1) 06/18/18 08:00 Sodium 142 mmol/L (136-145) 06/18/18 08:00 Potassium 4.2 mmol/L (3.5-5.1) 06/18/18 08:00 Chloride 106 mmol/L (98-107) 06/18/18 08:00 Carbon Dioxide 29 mmol/L (21-32) 06/18/18 08:00 Anion Gap 8 MMOL/L (8-16) 06/18/18 08:00 BUN 17 mg/dL (7-18) 06/18/18 08:00 Creatinine 0.8 mg/dL (0.55-1.3) 06/18/18 08:00 Creat Clearance w eGFR > 60 (>60) 06/18/18 08:00 Random Glucose 74 mg/dL (74-106) 06/18/18 08:00 Calcium 8.7 mg/dL (8.5-10.1) 06/18/18 08:00 Total Bilirubin 0.3 mg/dL (0.2-1) 06/18/18 08:00 AST 39 U/L (15-37) H 06/18/18 08:00 ALT 44 U/L (13-61) 06/18/18 08:00 Alkaline Phosphatase 75 U/L (45-117) 06/18/18 08:00 Total Protein 6.6 g/dl (6.4-8.2) 06/18/18 08:00 Albumin 3.3 g/dl (3.4-5.0) L 06/18/18 08:00 Urine Color Yellow 06/18/18 09:30 Urine Appearance Cloudy 06/18/18 09:30 Urine pH 7.0 (5.0-8.0) D 06/18/18 09:30 Ur Specific [place] 1.023 (1.010-1.035) 06/18/18 09:30 Urine Protein Negative (NEGATIVE) 06/18/18 09:30 Urine Glucose (UA) Negative (NEGATIVE) 06/18/18 09:30 Urine Ketones Negative (NEGATIVE) 06/18/18 09:30 Urine Blood Negative (NEGATIVE) 06/18/18 09:30 Urine Nitrite Negative (NEGATIVE) 06/18/18 09:30 Urine Bilirubin Negative (<2.0 mg/dL) 06/18/18 09:30 Urine Urobilinogen Negative mg/dL (0.2-1.0) 06/18/18 09:30 Ur Leukocyte Esterase Negative (NEGATIVE) 06/18/18 09:30 RPR Titer Nonreactive (NONREACTIVE) 06/18/18 08:00 Aox3, anxious no adventitious breath sounds full ROM ambulating in the unit Assessment: 06/18/18 15:26 withdrawal sx Plan: increase PO fluids continue detox
[2018-06-18] MEDS: THIAMINE HCL 100 MG TABLET (FP) PO SCH (22:06)
[2018-06-18] MEDS: MELATONIN 5 MG TABLETS PO PRN (22:07)
[2018-06-19 09:52] VITALS: TEMP 97.6
[2018-06-19] MEDS ORDERED: METHADONE HCL 5 MG TABLET (FOR DETOX USE ONLY) PO ONE (10:00)
[2018-06-19] MEDS: PRENATAL VITAMINS W/ FOLIC ACID TABLET (FP) PO SCH (10:07)
[2018-06-19] MEDS: SULFAMETHOXAZOLE/TRIMETHOPRIM 800MG/160MG D.S. TABLET PO SCH (10:07)
[2018-06-19] MEDS: NICOTINE 7 MG/24 HOURS TOPICAL PATCH TD SCH (10:07)
[2018-06-19 14:12] VITALS: BP 132/85; PULSE 85
--- NOTE | 2018-06-19 15:24 | DS ---
[facility] Detox Discharge Summary Admission Date: 06/17/18 Discharge Date: 06/19/18 - History Present History: Cocaine Dependence, Opioid Dependence Additional Comments: Patient stated he has to leave now because he has to work tomorrow. Patient not willing to complete detox despite encouragement from staff. Patient instructed to call 911 if feeling sick or any withdrawal symptoms and to see his PCP within 3 days. Pertinent Past History: Hepatitis C - Physical Exam Results Vital Signs: Vital Signs Temperature 97.6 F 06/19/18 14:11 Pulse Rate 85 06/19/18 14:11 Respiratory Rate 18 06/19/18 14:11 Blood Pressure 132/85 06/19/18 14:11 O2 Sat by Pulse Oximetry (%) Pertinent Admission Physical Exam Findings: Withdrawal symptoms Laboratory Tests 06/18/18 06/18/18 06/18/18 08:00 08:00 08:00 WBC 4.8 RBC 4.62 Hgb 12.9 Hct 39.4 MCV 85.4 MCH 28.0 MCHC 32.8 RDW 14.9 Plt Count 172 D MPV 8.4 Sodium 142 Potassium 4.2 Chloride 106 Carbon Dioxide 29 Anion Gap 8 BUN 17 Creatinine 0.8 Creat Clearance w eGFR > 60 Random Glucose 74 Calcium 8.7 Total Bilirubin 0.3 AST 39 H ALT 44 Alkaline Phosphatase 75 Total Protein 6.6 Albumin 3.3 L Urine Color Urine Appearance Urine pH Ur Specific [place] Urine Protein Urine Glucose (UA) Urine Ketones Urine Blood Urine Nitrite Urine Bilirubin Urine Urobilinogen Ur Leukocyte Esterase RPR Titer Nonreactive 06/18/18 09:30 WBC RBC Hgb Hct MCV MCH MCHC RDW Plt Count MPV Sodium Potassium Chloride Carbon Dioxide Anion Gap BUN Creatinine Creat Clearance w eGFR Random Glucose Calcium Total Bilirubin AST ALT Alkaline Phosphatase Total Protein Albumin Urine Color Yellow Urine Appearance Cloudy Urine pH 7.0 D Ur Specific [place] 1.023 Urine Protein Negative Urine Glucose (UA) Negative Urine Ketones Negative Urine Blood Negative Urine Nitrite Negative Urine Bilirubin Negative Urine Urobilinogen Negative Ur Leukocyte Esterase Negative RPR Titer Labs reviewed - Medication Discharge Medications: Ambulatory Orders NK [No Known Home Medication] 03/31/17 - Diagnosis (1) Opioid dependence with withdrawal Current Visit: Yes Status: Acute (2) Cocaine dependence Current Visit: Yes Status: Chronic Qualifiers: Substance use status: uncomplicated Qualified Code(s): F14.20 - Cocaine dependence, uncomplicated (3) Hepatitis C Current Visit: Yes Status: Chronic Qualifiers: Viral hepatitis chronicity: chronic Hepatic coma status: without hepatic coma Qualified Code(s): B18.2 - Chronic viral hepatitis C (4) Nicotine dependence Current Visit: Yes Status: Chronic Qualifiers: Nicotine product type: cigarettes Substance use status: uncomplicated Qualified Code(s): F17.210 - Nicotine dependence, cigarettes, uncomplicated - AMA Did Patient Leave Against Medical Advice: Yes (Patient instructed to call 911 if feel sick or withdrawal symptoms)
[2018-06-20] MEDS ORDERED: METHADONE HCL 10 MG TABLET (FOR DETOX USE ONLY) PO ONE (10:00)
[2018-06-21] MEDS ORDERED: METHADONE HCL 5 MG TABLET (FOR DETOX USE ONLY) PO ONE (06:00)
== END 2018-06-19 15:29 | disposition left against medical advice (07) | DRG 770 ==
LOC: YASAS 12:04 → Y3N 17:01
PROC: HZ2ZZZZ Detoxification Services for Substance Abuse Treatment (ICD-10-PCS; principal; 2018-06-17)
DX: F11.23 Opioid dependence with withdrawal (principal); F14.20 Cocaine dependence, uncomplicated; F17.210 Nicotine dependence, cigarettes, uncomplicated; B18.2 Chronic viral hepatitis C; R63.4 Abnormal weight loss; Z68.22 Body mass index [BMI] 22.0-22.9, adult
CPT/HCPCS: 36415; 80053; 81003; 85027; 86593; 93005; 93010

== ENCOUNTER 2018-10-08 11:36 | Inpatient (IN) | payer OTHER ==
[2018-10-08 11:52] VITALS: BMI 23.8
--- NOTE | 2018-10-08 12:29 | HP ---
COWS - Scale Resting Pulse: 1= [place] 81-100 Sweatin= No chills or Flushing Restless Observation: 1= Difficult to Sit Still Pupil Size: 0= Normal to Room Light Bone or Joint Aches: 1= Mild Discomfort Runny Nose/ Eye Tearin= Runny Nose/Eyes GI Upset > 30mins: 2= Nausea/Diarrhea Tremor Observation: 2= Slight Tremor Visible Yawning Observation: 2= >3x During Session Anxiety or Irritability: 1=Feels Anxious/Irritable Goose Flesh Skin: 0=Smooth Skin COWS Score: 12 CIWA Score Nausea/Vomitin Muscle Tremors: 4-Moderate,w/Arms Extend Anxiety: 1-Mildly Anxious Agitation: 2 Paroxysmal Sweats: 1-Minimal Palms Moist Orientation: 1-Uncertain about Date Tacttile Disturbances: 1-Very Mild Itch/Numbness Auditory Disturbances: 1-Very Mild Visual Disturbances: 1-Very Mild Sensitivity Headache: 2-Mild CIWA-Ar Total Score: 17 - Admission Criteria OASAS Guidelines: Admission for Medically Managed Detox: Requires at least one of the followin. CIWA greater than 12 2. Seizures within the past 24 hours 3. Delirium tremens within the past 24 hours 4. Hallucinations within the past 24 hours 5. Acute intervention needed for co occurring medical disorder 6. Acute intervention needed for co occurring psychiatric disorder 7. Severe withdrawal that cannot be handled at a lower level of care (continued vomiting, continued diarrhea, abnormal vital signs) requiring intravenous medication and/or fluids 8. Patient presents the following: CIWA greater than 12 Admission Criteria Met: Admission criteria met Admission ROS [facility] Chief Complaint: I'm sick, I've got a plan, I'm going back into [facility] but I have to get detox first Allergies/Adverse Reactions: Allergies Allergy/AdvReac Type Severity Reaction Status Date / Time No Known Allergies Allergy Verified 06/17/18 16:45 History of Present Illness: 48 yo gentleman here for detox from opiates and alcohol. Patient with long history of drug use - history of being on methadone program as well as suboxone. History of six overdoses, history of black outs, denies seizures. Patient states he was evicted by the [facility] on 10/05/18 and [facility] was inside the apartment and he cannot get access - he relapsed using heroin. He is supposed to go into [facility] next week. He states he wants to be off the suboxone program - the program is at [facility] at [id number] - he cannot think of the phone number - we discussed we need to contact the program next week to inform them and he agrees. I looked up contact information for Dr Hitchcock - phone number: [phone] - I called and the office now closed (weekend). [facility]: Prescriptions Patient Name: Star Galindo Date: 1970 Address: [address] [place] [address] Sex: Male Rx Written Rx Dispensed Drug Quantity Days Supply Prescriber Name 09/29/2018 09/29/2018 suboxone 8 mg-2 mg sl film 90 30 Nara Pereyra MD 05/02/2018 05/02/2018 suboxone 8 mg-2 mg sl film 27 9 Anita Miranda 03/23/2018 03/25/2018 suboxone 8 mg-2 mg sl film 84 28 Nara Pereyra MD 03/18/2018 03/18/2018 suboxone 8 mg-2 mg sl film 21 7 Nara Pereyra MD 02/18/2018 02/18/2018 suboxone 8 mg-2 mg sl film 90 30 Nara Pereyra MD 01/19/2018 01/19/2018 suboxone 8 mg-2 mg sl film 90 30 Nara Pereyra MD 12/24/2017 12/24/2017 methadone hcl 10 mg tablet 63 21 Nara Pereyra MD 12/14/2017 12/17/2017 methadone hcl 10 mg tablet 21 7 Nara Pereyra MD 11/16/2017 11/16/2017 suboxone 8 mg-2 mg sl film 90 30 Ezequiel Powers MD 10/18/2017 10/18/2017 suboxone 8 mg-2 mg sl film 90 30 Nara Pereyra MD * - Drugs marked with an asterisk are compound drugs. If the compound drug is made up of more than one controlled substance, then each controlled substance will be a separate row in the table. Exam Limitations: Clinical Condition - Ebola screening Have you traveled outside of the country in the last 21 days: No (N) Have you had contact with anyone from an Ebola affected area: No Have you been sick,other than usual withdrawal symptoms: No Do you have a fever: No - Review of Systems Constitutional: Loss of Appetite, Malaise, Night Sweats, Changes in sleep, Weakness, Unintentional Wgt. Loss EENT: reports: Blurred Vision, Nose Congestion Respiratory: reports: No Symptoms reported Cardiac: reports: No Symptoms Reported GI: reports: Diarrhea, Nausea, Indigestion, Abdominal cramping : reports: Frequency Musculoskeletal: reports: Back Pain, Muscle Pain Integumentary: reports: No Symptoms Reported Neuro: reports: Headache, Tremors Endocrine: reports: No Symptoms Reported Hematology: reports: No Symptoms Reported Psychiatric: reports: Judgement Intact, Mood/Affect Appropiate, Agitated, Anxious Other Systems: Reviewed and Negative Patient History - Patient Medical History Hx Anemia: No Hx Asthma: No Hx Chronic Obstructive Pulmonary Disease (COPD): No Hx Cancer: No Hx Cardiac Disorders: No Hx Hypertension: No Hx Hypercholesterolemia: No Hx Pacemaker: No HX Cerebrovascular Accident: No Hx Seizures: No Hx Dementia: No Hx Diabetes: No Hx Gastrointestinal Disorders: No Hx Liver Disease: No Hx Genitourinary Disorders: No Hx Sexually Transmitted Disorders: No Hx Renal Disease (ESRD): No Hx Thyroid Disease: No Hx Human Immunodeficiency Virus (HIV): No (last 10/09 negative) Hx Hepatitis C: Yes (treated with harvoni but was re-infected) Hx Depression: No Hx Suicide Attempt: No (denies) Hx Bipolar Disorder: No Hx Schizophrenia: No - Patient Surgical History Past Surgical History: No Hx Neurologic Surgery: No Hx Cataract Extraction: No Hx Cardiac Surgery: No Hx Lung Surgery: No Hx Breast Surgery: No Hx Breast Biopsy: No Hx Abdominal Surgery: No Hx Appendectomy: No Hx Cholecystectomy: No Hx Genitourinary Surgery: No Hx Section: No Hx Orthopedic Surgery: No Anesthesia Reaction: No - PPD History Previous Implant?: Yes Documented Results: Negative w/proof Implanted On Prior [facility] Admission?: Yes Date: 06/19/18 Results: 0 mm PPD to be Administered?: No - Reproductive History Patient is a Female of Child Bearing Age (11 -55 yrs old): No (male) - Smoking Cessation Smoking history: Current every day smoker Have you smoked in the past 12 months: Yes Aproximately how many cigarettes per day: 2 Hx Chewing Tobacco Use: No Initiated information on smoking cessation: Yes 'Breaking Loose' booklet given: 10/08/18 (give on floor) - Substance & Tx. History Hx Alcohol Use: Yes Hx Substance Use: Yes Substance Use Type: Alcohol, Heroin Hx Substance Use Treatment: Yes (detox, rehab, methadone) - Substances Abused heroin Route: Injection Frequency: Daily Amount used: 1 gm Age of first use: 30 Date of Last Use: 10/08/18 cocaine Route: Injection Frequency: 1-2 times per week Amount used: 1gm Age of first use: 25 Date of Last Use: 10/07/18 alcohol Route: Oral Frequency: Daily Amount used: 1 pint liquor Age of first use: 20 Date of Last Use: 10/08/18 Family Disease History - Family Disease History Family Disease History: Diabetes: Mother (living), Other: Father (living, healthy), Mother, Daughter (one age 12) Admission Physical Exam S - Vital Signs Vital Signs: Vital Signs - 24 hr 10/08/18 11:50 Temperature 97.8 F Pulse Rate 83 Respiratory 18 Rate Blood Pressure 119/69 - Physical General Appearance: Yes: Nourished, Appropriately Dressed, Moderate Distress, Thin, Tremorous, Irritable, Anxious HEENTM: Yes: Hearing grossly Normal, Normal ENT Inspection, Normocephalic, Normal Voice, Nasal Congestion Respiratory: Yes: Normal Breath Sounds, No Respiratory Distress Neck: Yes: No masses,lesions,Nodules Breast: Yes: Breast Exam Deferred Cardiology: Yes: Regular Rhythm, Regular Rate Abdominal: Yes: Flat, Soft Genitourinary: Yes: Frequency Back: Yes: Normal Inspection Musculoskeletal: Yes: full range of Motion, Gait Steady Extremities: Yes: Normal Inspection, Normal Range of Motion, Tremors Neurological: Yes: Fully Oriented, Alert, Motor Strength 5/5, Normal Mood/Affect , Normal Response Integumentary: Yes: Normal Color, Warm, Track [place] (both arms , no abscess noted) Lymphatic: Yes: Within Normal Limits - Diagnostic (1) Opioid dependence with withdrawal Current Visit: Yes Status: Acute (2) Weight loss Current Visit: Yes Status: Acute (3) Hepatitis C Current Visit: Yes Status: Chronic Qualifiers: Viral hepatitis chronicity: chronic Hepatic coma status: without hepatic coma Qualified Code(s): B18.2 - Chronic viral hepatitis C (4) Nicotine dependence Current Visit: Yes Status: Chronic Qualifiers: Nicotine product type: cigarettes Substance use status: uncomplicated Qualified Code(s): F17.210 - Nicotine dependence, cigarettes, uncomplicated (5) Cocaine dependence Current Visit: Yes Status: Chronic Qualifiers: Substance use status: uncomplicated Qualified Code(s): F14.20 - Cocaine dependence, uncomplicated Cleared for Admission [facility] - Detox or Rehab [facility] Level of Care: Medically Managed Detox Regimen/Protocol: Methadone/Valium BHS Breath Alcohol Content Breath Alcohol Content: 0 Urine Drug Screen - Results Drug Screen Negative: No Urine Drug Screen Results: COLT-Cocaine, OPI-Opiates, FEN-Fentanyl Inpatient Rehab Admission - Rehab Decision to Admit Inpatient rehab admission?: No
[2018-10-08] MEDS ORDERED: chlordiazePOXIDE HCL 25 MG CAPSULE PO PRN (13:15)
[2018-10-08] MEDS ORDERED: IBUPROFEN 400 MG TABLET (FP) PO PRN (13:15)
[2018-10-08] MEDS ORDERED: MENTHOL/PHENOL 1 EACH UD MM PRN (13:15)
[2018-10-08] MEDS ORDERED: METHADONE HCL 10 MG TABLET (FOR DETOX USE ONLY) PO ONE ×2 (13:15→23:00)
[2018-10-08] MEDS ORDERED: guaiFENesin/D-METHORPHAN HB 10 ML UNIT-DOSE CUPS PO PRN (13:15)
[2018-10-08] MEDS ORDERED: MAGNESIUM CITRATE 300 ML BOTTLE PO PRN (13:15)
[2018-10-08] MEDS ORDERED: ACETAMINOPHEN 325 MG TABLET (FP) PO PRN (13:15)
[2018-10-08] MEDS ORDERED: MAG HYDROX/AL HYDROX/SIMETH 30 ML UNIT-DOSE CUP PO PRN (13:15)
[2018-10-08] MEDS ORDERED: MAGNESIUM HYDROX 2400MG/30ML ORAL SUSPENSION 30 ML CUP PO PRN (13:15)
[2018-10-08] MEDS ORDERED: P-EPHED 60MG/TRIPROLIDI 2.5MG TABLET PO PRN (13:15)
[2018-10-08] MEDS ORDERED: LOPERAMIDE HCL 2 MG CAPSULE PO PRN (13:15)
[2018-10-08] MEDS: NICOTINE 7 MG/24 HOURS TOPICAL PATCH TD SCH (15:30)
[2018-10-08] MEDS: chlordiazePOXIDE HCL 25 MG CAPSULE PO SCH ×2 (17:19→22:29)
[2018-10-08] MEDS: THIAMINE HCL 100 MG TABLET (FP) PO SCH (22:29)
[2018-10-09] MEDS: chlordiazePOXIDE HCL 25 MG CAPSULE PO SCH ×4 (05:20→23:15)
[2018-10-09] MEDS ORDERED: ONDANSETRON *ODT* 4 MG TABLET SL ONE (07:23)
--- NOTE | 2018-10-09 07:25 | PN ---
S Progress Note Note: Patient complains of nausea. Denies vomiting at this time Vital Signs Temperature 97.7 F 10/09/18 06:07 Pulse Rate 69 10/09/18 06:07 Respiratory Rate 18 10/09/18 06:07 Blood Pressure 147/86 10/09/18 06:07 O2 Sat by Pulse Oximetry (%) ACTION: Zofran 4mg sublingual ordered
[2018-10-09] MEDS ORDERED: METHADONE HCL 10 MG TABLET (FOR DETOX USE ONLY) PO SCH (10:00)
[2018-10-09 10:39] LABS: HEMATOCRIT 41.9 % (35.4-49); HEMOGLOBIN 14.7 GM/dL (11.7-16.9); MCH 30.5 pg (25.7-33.7); MCHC 35.2 g/dl (32.0-35.9); MEAN CELL VOLUME 86.8 fl (80-96); MEAN PLT VOLUME 9.1 fl (7.5-11.1); PLATELET COUNT 189 K/MM3 (134-434); RBC 4.83 M/mm3 (4.00-5.60); RDW 14.3 % (11.9-15.9); WHITE BLOOD COUNT 8.9 K/mm3 (4.0-10.0)
[2018-10-09] MEDS: PRENATAL VITAMINS W/ FOLIC ACID TABLET (FP) PO SCH (10:39)
[2018-10-09] MEDS: NICOTINE 7 MG/24 HOURS TOPICAL PATCH TD SCH (10:39)
[2018-10-09 10:57] LABS: ALBUMIN 3.8 g/dl (3.4-5.0); ALK PHOS 69 U/L (45-117); ANION GAP 7 MMOL/L (8-16); BILIRUBIN,TOTAL 0.4 mg/dL (0.2-1); BLOOD UREA NITROGEN 16 mg/dL (7-18); CHLORIDE 106 mmol/L (98-107); CO2 28 mmol/L (21-32); CREATININE 0.9 mg/dL (0.55-1.3); GLUCOSE,RANDOM 98 mg/dL (74-106); POTASSIUM 4.1 mmol/L (3.5-5.1); SGOT/AST 36 U/L (15-37); SGPT/ALT 37 U/L (13-61); SODIUM 142 mmol/L (136-145); TOT PROT 7.6 g/dl (6.4-8.2)
--- NOTE | 2018-10-09 13:56 | PN ---
[facility] CIWA - CIWA Score Nausea/Vomitin-Mild Nausea/No Vomiting Muscle Tremors: 3 Anxiety: 2 Agitation: 2 Paroxysmal Sweats: 1-Minimal Palms Moist Orientation: 1-Uncertain about Date Tacttile Disturbances: 0-None Auditory Disturbances: 0-None Visual Disturbances: 0-None Headache: 2-Mild CIWA-Ar Total Score: 12 BHS COWS - Scale Resting Pulse: 0= [place] 80 or Below Sweatin= Chills/Flushing Restless Observation: 0= Sits Still Pupil Size: 0= Normal to Room Light Bone or Joint Aches: 2= Severe Diffuse Aches Runny Nose/ Eye Tearin= Nasal Congestion GI Upset > 30mins: 1= Stomach Cramp Tremor Observation of Outstretched Hands: 2= Slight Tremor Visible Yawning Observation: 1= 1-2x During Session Anxiety or Irritability: 1=Feels Anxious/Irritable Goose Flesh Skin: 3=[place] COWS Score: 12 S Progress Note (SOAP) Subjective: patient received 30 days suboxone of 8-2 mg tid sl on 09/29/18 patient refuses to continue suboxone as medication assisted treatment of opiate patient reported that he is not taking suboxne urine tox negative suboxone upon admission patient preferred methadone for opiate detox cows 12 body aches irritable joints pain tremor sweating Objective: 10/09/18 13:59 Vital Signs Temperature 96.8 F L 10/09/18 13:46 Pulse Rate 61 10/09/18 13:46 Respiratory Rate 18 10/09/18 13:46 Blood Pressure 157/90 10/09/18 13:46 O2 Sat by Pulse Oximetry (%) Laboratory Last Values WBC 8.9 K/mm3 (4.0-10.0) 10/09/18 07:50 RBC 4.83 M/mm3 (4.00-5.60) 10/09/18 07:50 Hgb 14.7 GM/dL (11.7-16.9) 10/09/18 07:50 Hct 41.9 % (35.4-49) 10/09/18 07:50 MCV 86.8 fl (80-96) 10/09/18 07:50 MCH 30.5 pg (25.7-33.7) 10/09/18 07:50 MCHC 35.2 g/dl (32.0-35.9) 10/09/18 07:50 RDW 14.3 % (11.9-15.9) 10/09/18 07:50 Plt Count 189 K/MM3 (134-434) 10/09/18 07:50 MPV 9.1 fl (7.5-11.1) 10/09/18 07:50 Sodium 142 mmol/L (136-145) 10/09/18 07:50 Potassium 4.1 mmol/L (3.5-5.1) 10/09/18 07:50 Chloride 106 mmol/L (98-107) 10/09/18 07:50 Carbon Dioxide 28 mmol/L (21-32) 10/09/18 07:50 Anion Gap 7 MMOL/L (8-16) L 10/09/18 07:50 BUN 16 mg/dL (7-18) 10/09/18 07:50 Creatinine 0.9 mg/dL (0.55-1.3) 10/09/18 07:50 Creat Clearance w eGFR > 60 (>60) 10/09/18 07:50 Random Glucose 98 mg/dL (74-106) 10/09/18 07:50 Calcium 9.0 mg/dL (8.5-10.1) 10/09/18 07:50 Total Bilirubin 0.4 mg/dL (0.2-1) 10/09/18 07:50 AST 36 U/L (15-37) 10/09/18 07:50 ALT 37 U/L (13-61) 10/09/18 07:50 Alkaline Phosphatase 69 U/L (45-117) 10/09/18 07:50 Total Protein 7.6 g/dl (6.4-8.2) 10/09/18 07:50 Albumin 3.8 g/dl (3.4-5.0) 10/09/18 07:50 RPR Titer Nonreactive (NONREACTIVE) 10/09/18 07:50 lab noted Assessment: 10/09/18 13:59 alcohol and opiate withdrawal sx Plan: continue detox
[2018-10-09] MEDS ORDERED: LISINOPRIL 5 MG TABLET (FP) PO SCH (14:15)
[2018-10-09] MEDS: LISINOPRIL 5 MG TABLET (FP) PO SCH (15:48)
[2018-10-09] MEDS: THIAMINE HCL 100 MG TABLET (FP) PO SCH (23:15)
--- NOTE | 2018-10-10 00:52 | PN ---
[facility] Progress Note Note: I was notified by the nurse, Mr. Darcie Dietz that patient had a temperature of 100. 9F Vital Signs 10/09/18 10/09/18 10/09/18 17:27 18:08 21:44 Temperature 100.3 F H 99.5 F 100.9 F H Pulse Rate 61 63 Respiratory 16 18 Rate Blood Pressure 152/88 142/85 10/09/18 10/10/18 23:09 00:32 Temperature 98.7 F Pulse Rate Respiratory 18 Rate Blood Pressure Action: Labs CBC and Urinalysis ordered
[2018-10-10] MEDS: chlordiazePOXIDE HCL 25 MG CAPSULE PO SCH ×2 (06:48→10:41)
--- NOTE | 2018-10-10 10:32 | PN ---
[facility] CIWA - CIWA Score Nausea/Vomitin-Mild Nausea/No Vomiting Muscle Tremors: 3 Anxiety: 2 Agitation: 2 Paroxysmal Sweats: 1-Minimal Palms Moist Orientation: 1-Uncertain about Date Tacttile Disturbances: 0-None Auditory Disturbances: 0-None Visual Disturbances: 0-None Headache: 0-None Present CIWA-Ar Total Score: 10 BHS COWS - Scale Resting Pulse: 0= [place] 80 or Below Sweatin= Chills/Flushing Restless Observation: 0= Sits Still Pupil Size: 0= Normal to Room Light Bone or Joint Aches: 1= Mild Discomfort Runny Nose/ Eye Tearin= Nasal Congestion GI Upset > 30mins: 2= Nausea/Diarrhea Tremor Observation of Outstretched Hands: 1= Tremor [place], Not Seen Yawning Observation: 1= 1-2x During Session Anxiety or Irritability: 1=Feels Anxious/Irritable Goose Flesh Skin: 0=Smooth Skin COWS Score: 8 [facility] Progress Note (SOAP) Subjective: low grade fever treated with tylenal ua cbc chest x ray pending body aches joints pain tremor sweating Objective: 10/10/18 10:30 Vital Signs Temperature 98.1 F 10/10/18 09:18 Pulse Rate 59 L 10/10/18 09:18 Respiratory Rate 18 10/10/18 09:18 Blood Pressure 148/90 10/10/18 09:18 O2 Sat by Pulse Oximetry (%) Laboratory Last Values WBC 8.9 K/mm3 (4.0-10.0) 10/09/18 07:50 RBC 4.83 M/mm3 (4.00-5.60) 10/09/18 07:50 Hgb 14.7 GM/dL (11.7-16.9) 10/09/18 07:50 Hct 41.9 % (35.4-49) 10/09/18 07:50 MCV 86.8 fl (80-96) 10/09/18 07:50 MCH 30.5 pg (25.7-33.7) 10/09/18 07:50 MCHC 35.2 g/dl (32.0-35.9) 10/09/18 07:50 RDW 14.3 % (11.9-15.9) 10/09/18 07:50 Plt Count 189 K/MM3 (134-434) 10/09/18 07:50 MPV 9.1 fl (7.5-11.1) 10/09/18 07:50 Sodium 142 mmol/L (136-145) 10/09/18 07:50 Potassium 4.1 mmol/L (3.5-5.1) 10/09/18 07:50 Chloride 106 mmol/L (98-107) 10/09/18 07:50 Carbon Dioxide 28 mmol/L (21-32) 10/09/18 07:50 Anion Gap 7 MMOL/L (8-16) L 10/09/18 07:50 BUN 16 mg/dL (7-18) 10/09/18 07:50 Creatinine 0.9 mg/dL (0.55-1.3) 10/09/18 07:50 Creat Clearance w eGFR > 60 (>60) 10/09/18 07:50 Random Glucose 98 mg/dL (74-106) 10/09/18 07:50 Calcium 9.0 mg/dL (8.5-10.1) 10/09/18 07:50 Total Bilirubin 0.4 mg/dL (0.2-1) 10/09/18 07:50 AST 36 U/L (15-37) 10/09/18 07:50 ALT 37 U/L (13-61) 10/09/18 07:50 Alkaline Phosphatase 69 U/L (45-117) 10/09/18 07:50 Total Protein 7.6 g/dl (6.4-8.2) 10/09/18 07:50 Albumin 3.8 g/dl (3.4-5.0) 10/09/18 07:50 RPR Titer Nonreactive (NONREACTIVE) 10/09/18 07:50 lab noted hypertension increase lisinopril to 10 mg po daily Assessment: 10/10/18 10:31 withdrawal sx Plan: continue detox
[2018-10-10] MEDS: METHADONE HCL 5 MG TABLET (FOR DETOX USE ONLY) PO SCH (10:41)
[2018-10-10] MEDS: NICOTINE 7 MG/24 HOURS TOPICAL PATCH TD SCH (10:42)
[2018-10-10] MEDS: PRENATAL VITAMINS W/ FOLIC ACID TABLET (FP) PO SCH (10:43)
[2018-10-10] MEDS ORDERED: AZITHROMYCIN 250 MG TABLET PO ONE (11:15)
[2018-10-10] MEDS: LISINOPRIL 5 MG TABLET (FP) PO SCH (12:25)
[2018-10-10] MEDS: LISINOPRIL 10 MG TABLET (FP) PO SCH (13:23)
[2018-10-10] MEDS: chlordiazePOXIDE 5 MG CAPSULE PO SCH ×2 (17:53→22:48)
--- NOTE | 2018-10-10 17:58 | PN ---
[facility] Progress Note Note: Vital Signs Temperature 99 F 10/10/18 17:28 Pulse Rate 65 10/10/18 17:28 Respiratory Rate 16 10/10/18 17:28 Blood Pressure 128/82 10/10/18 17:28 O2 Sat by Pulse Oximetry (%) c/o of nausea zofran once fluids as need continue to monitor
[2018-10-10] MEDS: ONDANSETRON *ODT* 4 MG TABLET SL PRN (18:47)
[2018-10-10] MEDS: MELATONIN 5 MG TABLETS PO PRN (22:48)
[2018-10-10] MEDS: THIAMINE HCL 100 MG TABLET (FP) PO SCH (22:48)
[2018-10-11] MEDS: chlordiazePOXIDE 5 MG CAPSULE PO SCH ×2 (05:02→10:25)
[2018-10-11] MEDS: ONDANSETRON *ODT* 4 MG TABLET SL PRN ×2 (08:40→22:44)
[2018-10-11] MEDS: LISINOPRIL 10 MG TABLET (FP) PO SCH (10:25)
[2018-10-11] MEDS: METHADONE HCL 5 MG TABLET (FOR DETOX USE ONLY) PO SCH (10:25)
[2018-10-11] MEDS: PRENATAL VITAMINS W/ FOLIC ACID TABLET (FP) PO SCH (10:26)
[2018-10-11] MEDS: NICOTINE 7 MG/24 HOURS TOPICAL PATCH TD SCH (10:27)
[2018-10-11] MEDS: AZITHROMYCIN 250 MG TABLET PO SCH (10:28)
--- NOTE | 2018-10-11 11:04 | PN ---
[facility] CIWA - CIWA Score Nausea/Vomitin-No Nausea/No Vomiting Muscle Tremors: 2 Anxiety: 3 Agitation: 2 Paroxysmal Sweats: 1-Minimal Palms Moist Orientation: 1-Uncertain about Date Tacttile Disturbances: 0-None Auditory Disturbances: 0-None Visual Disturbances: 0-None Headache: 0-None Present CIWA-Ar Total Score: 9 BHS COWS - Scale Resting Pulse: 1= [place] 81-100 Sweatin= Chills/Flushing Restless Observation: 0= Sits Still Pupil Size: 0= Normal to Room Light Bone or Joint Aches: 1= Mild Discomfort Runny Nose/ Eye Tearin= Nasal Congestion GI Upset > 30mins: 0= None Tremor Observation of Outstretched Hands: 1= Tremor [place], Not Seen Yawning Observation: 0= None Anxiety or Irritability: 1=Feels Anxious/Irritable Goose Flesh Skin: 0=Smooth Skin COWS Score: 6 BHS Progress Note (SOAP) Subjective: denies nausea today mild body aches tremor anxiety sweating patient wants to discuss nutrition with principal scientist specialist principal scientist referral Objective: 10/11/18 11:04 Vital Signs Temperature 96.8 F L 10/11/18 09:04 Pulse Rate 76 10/11/18 09:04 Respiratory Rate 18 10/11/18 09:04 Blood Pressure 128/73 10/11/18 09:04 O2 Sat by Pulse Oximetry (%) Laboratory Last Values WBC 8.9 K/mm3 (4.0-10.0) 10/09/18 07:50 RBC 4.83 M/mm3 (4.00-5.60) 10/09/18 07:50 Hgb 14.7 GM/dL (11.7-16.9) 10/09/18 07:50 Hct 41.9 % (35.4-49) 10/09/18 07:50 MCV 86.8 fl (80-96) 10/09/18 07:50 MCH 30.5 pg (25.7-33.7) 10/09/18 07:50 MCHC 35.2 g/dl (32.0-35.9) 10/09/18 07:50 RDW 14.3 % (11.9-15.9) 10/09/18 07:50 Plt Count 189 K/MM3 (134-434) 10/09/18 07:50 MPV 9.1 fl (7.5-11.1) 10/09/18 07:50 Sodium 142 mmol/L (136-145) 10/09/18 07:50 Potassium 4.1 mmol/L (3.5-5.1) 10/09/18 07:50 Chloride 106 mmol/L (98-107) 10/09/18 07:50 Carbon Dioxide 28 mmol/L (21-32) 10/09/18 07:50 Anion Gap 7 MMOL/L (8-16) L 10/09/18 07:50 BUN 16 mg/dL (7-18) 10/09/18 07:50 Creatinine 0.9 mg/dL (0.55-1.3) 10/09/18 07:50 Creat Clearance w eGFR > 60 (>60) 10/09/18 07:50 Random Glucose 98 mg/dL (74-106) 10/09/18 07:50 Calcium 9.0 mg/dL (8.5-10.1) 10/09/18 07:50 Total Bilirubin 0.4 mg/dL (0.2-1) 10/09/18 07:50 AST 36 U/L (15-37) 10/09/18 07:50 ALT 37 U/L (13-61) 10/09/18 07:50 Alkaline Phosphatase 69 U/L (45-117) 10/09/18 07:50 Total Protein 7.6 g/dl (6.4-8.2) 10/09/18 07:50 Albumin 3.8 g/dl (3.4-5.0) 10/09/18 07:50 RPR Titer Nonreactive (NONREACTIVE) 10/09/18 07:50 lab noted Assessment: 10/11/18 11:04 withdrawal sx Plan: continue detox
[2018-10-11 11:48] LABS: HEMATOCRIT 44.6 % (35.4-49); HEMOGLOBIN 15.4 GM/dL (11.7-16.9); MCH 29.7 pg (25.7-33.7); MCHC 34.4 g/dl (32.0-35.9); MEAN CELL VOLUME 86.2 fl (80-96); MEAN PLT VOLUME 8.8 fl (7.5-11.1); PLATELET COUNT 231 K/MM3 (134-434); RBC 5.17 M/mm3 (4.00-5.60); RDW 14.7 % (11.9-15.9); WHITE BLOOD COUNT 8.9 K/mm3 (4.0-10.0)
[2018-10-11] MEDS: chlordiazePOXIDE HCL 10 MG CAPSULE PO SCH ×2 (18:04→22:45)
[2018-10-11] MEDS: MELATONIN 5 MG TABLETS PO PRN (22:45)
[2018-10-11] MEDS: THIAMINE HCL 100 MG TABLET (FP) PO SCH (22:45)
[2018-10-12] MEDS: chlordiazePOXIDE HCL 10 MG CAPSULE PO SCH ×2 (05:34→10:26)
--- NOTE | 2018-10-12 09:28 | PN ---
[facility] CIWA - CIWA Score Nausea/Vomitin-No Nausea/No Vomiting Muscle Tremors: 1-None Visible, but [place] Anxiety: 1-Mildly Anxious Agitation: 1-Slight > Activity Paroxysmal Sweats: 1-Minimal Palms Moist Orientation: 0-Oriented Tacttile Disturbances: 1-Very Mild Itch/Numbness Auditory Disturbances: 0-None Visual Disturbances: 0-None Headache: 1-Very Mild CIWA-Ar Total Score: 6 BHS COWS - Scale Resting Pulse: 0= [place] 80 or Below Sweatin= No chills or Flushing Restless Observation: 0= Sits Still Pupil Size: 0= Normal to Room Light Bone or Joint Aches: 1= Mild Discomfort Runny Nose/ Eye Tearin= Nasal Congestion GI Upset > 30mins: 0= None Tremor Observation of Outstretched Hands: 1= Tremor [place], Not Seen Yawning Observation: 0= None Anxiety or Irritability: 1=Feels Anxious/Irritable Goose Flesh Skin: 0=Smooth Skin COWS Score: 4 S Progress Note (SOAP) Subjective: feeling better mild tremor little sweating less body aches ambulating on hallway social with peers in day room discuss aftercare with staff Objective: 10/12/18 09:24 Vital Signs Temperature 97.2 F L 10/12/18 06:30 Pulse Rate 63 10/12/18 06:30 Respiratory Rate 18 10/12/18 06:30 Blood Pressure 104/66 10/12/18 06:30 O2 Sat by Pulse Oximetry (%) Laboratory Last Values WBC 8.9 K/mm3 (4.0-10.0) 10/11/18 08:00 RBC 5.17 M/mm3 (4.00-5.60) 10/11/18 08:00 Hgb 15.4 GM/dL (11.7-16.9) 10/11/18 08:00 Hct 44.6 % (35.4-49) 10/11/18 08:00 MCV 86.2 fl (80-96) 10/11/18 08:00 MCH 29.7 pg (25.7-33.7) 10/11/18 08:00 MCHC 34.4 g/dl (32.0-35.9) 10/11/18 08:00 RDW 14.7 % (11.9-15.9) 10/11/18 08:00 Plt Count 231 K/MM3 (134-434) D 10/11/18 08:00 MPV 8.8 fl (7.5-11.1) 10/11/18 08:00 Sodium 142 mmol/L (136-145) 10/09/18 07:50 Potassium 4.1 mmol/L (3.5-5.1) 10/09/18 07:50 Chloride 106 mmol/L (98-107) 10/09/18 07:50 Carbon Dioxide 28 mmol/L (21-32) 10/09/18 07:50 Anion Gap 7 MMOL/L (8-16) L 10/09/18 07:50 BUN 16 mg/dL (7-18) 10/09/18 07:50 Creatinine 0.9 mg/dL (0.55-1.3) 10/09/18 07:50 Creat Clearance w eGFR > 60 (>60) 10/09/18 07:50 Random Glucose 98 mg/dL (74-106) 10/09/18 07:50 Calcium 9.0 mg/dL (8.5-10.1) 10/09/18 07:50 Total Bilirubin 0.4 mg/dL (0.2-1) 10/09/18 07:50 AST 36 U/L (15-37) 10/09/18 07:50 ALT 37 U/L (13-61) 10/09/18 07:50 Alkaline Phosphatase 69 U/L (45-117) 10/09/18 07:50 Total Protein 7.6 g/dl (6.4-8.2) 10/09/18 07:50 Albumin 3.8 g/dl (3.4-5.0) 10/09/18 07:50 RPR Titer Nonreactive (NONREACTIVE) 10/09/18 07:50 lab noted discuss adherence with antihypertensant, medication list in wallet, bring in bottles of medication and medication list to aftercare appointments Assessment: 10/12/18 09:26 mild withdrawal sx encourage community health services such as urgent care, mini clinic, [facility] etc convenience for patient self manage of hisf hypertension Plan: continue detox discuss risks of alcohol and opioid as well as the risks of uncontrolled bp elevation such as [place]
[2018-10-12] MEDS ORDERED: METHADONE HCL 10 MG TABLET (FOR DETOX USE ONLY) PO SCH (10:00)
[2018-10-12] MEDS: AZITHROMYCIN 250 MG TABLET PO SCH (10:26)
[2018-10-12] MEDS: LISINOPRIL 10 MG TABLET (FP) PO SCH (10:26)
[2018-10-12] MEDS: NICOTINE 7 MG/24 HOURS TOPICAL PATCH TD SCH (10:26)
[2018-10-12] MEDS: PRENATAL VITAMINS W/ FOLIC ACID TABLET (FP) PO SCH (10:26)
[2018-10-12 11:50] LABS: URINE APPEARANCE CLEAR; URINE BILIRUBIN NEGATIVE (<2.0 mg/dL); URINE COLOR YELLOW; URINE GLUCOSE (UA) NEGATIVE (NEGATIVE); URINE KETONE NEGATIVE (NEGATIVE); URINE LEUK ESTERASE NEGATIVE (NEGATIVE); URINE NITRITE NEGATIVE (NEGATIVE); URINE PROTEIN NEGATIVE (NEGATIVE); URINE UROBILINOGEN NEGATIVE mg/dL (0.2-1.0)
[2018-10-12 21:43] VITALS: PULSE 70
[2018-10-12] MEDS: MELATONIN 5 MG TABLETS PO PRN (22:49)
[2018-10-12] MEDS: THIAMINE HCL 100 MG TABLET (FP) PO SCH (22:49)
[2018-10-13] MEDS ORDERED: METHADONE HCL 5 MG TABLET (FOR DETOX USE ONLY) PO SCH (06:00)
[2018-10-13 06:17] VITALS: BP 122/72; TEMP 97.5
--- NOTE | 2018-10-13 11:30 | DS ---
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 recommend medication assisted treatment program - Physical Exam Results Vital Signs: Vital Signs Temperature 97.5 F L 10/13/18 06:16 Pulse Rate 70 10/13/18 06:16 Respiratory Rate 18 10/13/18 06:16 Blood Pressure 122/72 10/13/18 06:16 O2 Sat by Pulse Oximetry (%) Pertinent Admission Physical Exam Findings: alcohol and opiate withdrawal sx Laboratory Last Values WBC 8.9 K/mm3 (4.0-10.0) 10/11/18 08:00 RBC 5.17 M/mm3 (4.00-5.60) 10/11/18 08:00 Hgb 15.4 GM/dL (11.7-16.9) 10/11/18 08:00 Hct 44.6 % (35.4-49) 10/11/18 08:00 MCV 86.2 fl (80-96) 10/11/18 08:00 MCH 29.7 pg (25.7-33.7) 10/11/18 08:00 MCHC 34.4 g/dl (32.0-35.9) 10/11/18 08:00 RDW 14.7 % (11.9-15.9) 10/11/18 08:00 Plt Count 231 K/MM3 (134-434) D 10/11/18 08:00 MPV 8.8 fl (7.5-11.1) 10/11/18 08:00 Sodium 142 mmol/L (136-145) 10/09/18 07:50 Potassium 4.1 mmol/L (3.5-5.1) 10/09/18 07:50 Chloride 106 mmol/L (98-107) 10/09/18 07:50 Carbon Dioxide 28 mmol/L (21-32) 10/09/18 07:50 Anion Gap 7 MMOL/L (8-16) L 10/09/18 07:50 BUN 16 mg/dL (7-18) 10/09/18 07:50 Creatinine 0.9 mg/dL (0.55-1.3) 10/09/18 07:50 Creat Clearance w eGFR > 60 (>60) 10/09/18 07:50 Random Glucose 98 mg/dL (74-106) 10/09/18 07:50 Calcium 9.0 mg/dL (8.5-10.1) 10/09/18 07:50 Total Bilirubin 0.4 mg/dL (0.2-1) 10/09/18 07:50 AST 36 U/L (15-37) 10/09/18 07:50 ALT 37 U/L (13-61) 10/09/18 07:50 Alkaline Phosphatase 69 U/L (45-117) 10/09/18 07:50 Total Protein 7.6 g/dl (6.4-8.2) 10/09/18 07:50 Albumin 3.8 g/dl (3.4-5.0) 10/09/18 07:50 Urine Color Yellow 10/12/18 10:00 Urine Appearance Clear 10/12/18 10:00 Urine pH 7.0 (5.0-8.0) 10/12/18 10:00 Ur Specific [place] 1.015 (1.010-1.035) 10/12/18 10:00 Urine Protein Negative (NEGATIVE) 10/12/18 10:00 Urine Glucose (UA) Negative (NEGATIVE) 10/12/18 10:00 Urine Ketones Negative (NEGATIVE) 10/12/18 10:00 Urine Blood Negative (NEGATIVE) 10/12/18 10:00 Urine Nitrite Negative (NEGATIVE) 10/12/18 10:00 Urine Bilirubin Negative (<2.0 mg/dL) 10/12/18 10:00 Urine Urobilinogen Negative mg/dL (0.2-1.0) 10/12/18 10:00 Ur Leukocyte Esterase Negative (NEGATIVE) 10/12/18 10:00 RPR Titer Nonreactive (NONREACTIVE) 10/09/18 07:50 lab noted - Treatment Hospital Course: Detox Protocol Followed, Detoxed Safely, Responded well, Discharged Condition Good, Rehab Referral Accepted Patient has Accepted a Rehab Referral to: [facility] - Medication Discharge Medications: Ambulatory Orders Lisinopril 10 mg PO DAILY #14 tablet 10/12/18 Naloxone HCl [Narcan] 4 mg NS ASDIR PRN #1 spray 10/12/18 - Diagnosis (1) Hypertension Status: Chronic Qualifiers: Hypertension type: essential hypertension Qualified Code(s): I10 - Essential (primary) hypertension (2) Opioid dependence with withdrawal Status: Acute (3) Weight loss Status: Acute (4) Hepatitis C Status: Chronic Qualifiers: Viral hepatitis chronicity: chronic Hepatic coma status: without hepatic coma Qualified Code(s): B18.2 - Chronic viral hepatitis C (5) Nicotine dependence Status: Acute Qualifiers: Nicotine product type: cigarettes Substance use status: in withdrawal Qualified Code(s): F17.213 - Nicotine dependence, cigarettes, with withdrawal - AMA Did Patient Leave Against Medical Advice: No
== END 2018-10-13 09:14 | disposition home or self-care (01) | DRG 773 ==
LOC: YASAS 11:36 → Y3N 14:46
PROVIDERS: ADMIT Surgery; ATTEND Surgery
PROC: HZ2ZZZZ Detoxification Services for Substance Abuse Treatment (ICD-10-PCS; principal; 2018-10-08)
DX: F11.23 Opioid dependence with withdrawal (principal); F10.230 Alcohol dependence with withdrawal, uncomplicated; F14.20 Cocaine dependence, uncomplicated; F17.213 Nicotine dependence, cigarettes, with withdrawal; I10 Essential (primary) hypertension; B18.2 Chronic viral hepatitis C
CPT/HCPCS: 36415; 71046-TC-FY; 80053; 81003; 85027; 86593; Q0162

== ENCOUNTER 2018-12-09 10:33 | Inpatient (IN) | payer OTHER ==
[2018-12-09 10:57] VITALS: BMI 23.3
--- NOTE | 2018-12-09 11:27 | HP ---
COWS - Scale Resting Pulse: 1= [place] 81-100 Sweatin= Chills/Flushing Restless Observation: 1= Difficult to Sit Still Pupil Size: 1= Pupils >than Normal Bone or Joint Aches: 2= Severe Diffuse Aches Runny Nose/ Eye Tearin= Runny Nose/Eyes GI Upset > 30mins: 2= Nausea/Diarrhea Tremor Observation: 2= Slight Tremor Visible Yawning Observation: 2= >3x During Session Anxiety or Irritability: 2=Irritable/Anxious Goose Flesh Skin: 0=Smooth Skin COWS Score: 16 CIWA Score Nausea/Vomitin Muscle Tremors: 2 Anxiety: 2 Agitation: 2 Paroxysmal Sweats: 2 Orientation: 0-Oriented Tacttile Disturbances: 1-Very Mild Itch/Numbness Auditory Disturbances: 1-Very Mild Visual Disturbances: 0-None Headache: 2-Mild CIWA-Ar Total Score: 14 - Admission Criteria [facility]ASAS Guidelines: Admission for Medically Managed Detox: Requires at least one of the followin. CIWA greater than 12 2. Seizures within the past 24 hours 3. Delirium tremens within the past 24 hours 4. Hallucinations within the past 24 hours 5. Acute intervention needed for co occurring medical disorder 6. Acute intervention needed for co occurring psychiatric disorder 7. Severe withdrawal that cannot be handled at a lower level of care (continued vomiting, continued diarrhea, abnormal vital signs) requiring intravenous medication and/or fluids 8. Admission ROS S - [facility] Chief Complaint: i need help to stop using heroin and cocaine Allergies/Adverse Reactions: Allergies Allergy/AdvReac Type Severity Reaction Status Date / Time No Known Allergies Allergy Verified 12/09/18 10:47 History of Present Illness: this48 years old male with heroin and cocaine dependence,seeking detox, withdrawal symptom, multiple admissions to detox,last detox elvator 11/21/18 to 11/25/18 keep relapsing hepatitis c treated 2 years ago weight loss nicotine dependence 1/2 pack,requesting patch longest sobriety 2 years plan for rehab after detox Exam Limitations: No Limitations - Ebola screening Have you traveled outside of the country in the last 21 days: No (N) Have you had contact with anyone from an Ebola affected area: No Do you have a fever: No - Review of Systems Constitutional: Chills, Loss of Appetite, Malaise, Night Sweats, Changes in sleep, Weakness, Unintentional Wgt. Loss EENT: reports: Tearing, Nose Congestion Respiratory: reports: No Symptoms reported Cardiac: reports: Palpitations GI: reports: Diarrhea, Nausea, Poor Appetite, Abdominal cramping : reports: No Symptoms Reported Musculoskeletal: reports: Back Pain, Joint Pain, Muscle Pain, Joint Stiffness Integumentary: reports: Dryness Neuro: reports: Headache, Tremors Endocrine: reports: No Symptoms Reported Hematology: reports: No Symptoms Reported Psychiatric: reports: No Sypmtoms Reported, Judgement Intact, Mood/Affect Appropiate, Orientated x3, other Other Systems: Reviewed and Negative Patient History - Patient Medical History Hx Anemia: No Hx Asthma: No Hx Chronic Obstructive Pulmonary Disease (COPD): No Hx Cancer: No Hx Cardiac Disorders: No Hx Hypertension: No Hx Hypercholesterolemia: No Hx Pacemaker: No HX Cerebrovascular Accident: No Hx Seizures: No Hx Dementia: No Hx Diabetes: No Hx Gastrointestinal Disorders: No Hx Liver Disease: No Hx Genitourinary Disorders: No Hx Sexually Transmitted Disorders: No Hx Renal Disease (ESRD): No Hx Thyroid Disease: No Hx Human Immunodeficiency Virus (HIV): No (last negagive) Hx Hepatitis C: Yes (treated with harvoni but was re-infected) Hx Depression: No Hx Suicide Attempt: No (denies) Hx Bipolar Disorder: No Hx Schizophrenia: No Other Medical History: no suicidal,no homicidal - Patient Surgical History Past Surgical History: No Hx Neurologic Surgery: No Hx Cataract Extraction: No Hx Cardiac Surgery: No Hx Lung Surgery: No Hx Breast Surgery: No Hx Breast Biopsy: No Hx Abdominal Surgery: No Hx Appendectomy: No Hx Cholecystectomy: No Hx Genitourinary Surgery: No Hx Section: No Hx Orthopedic Surgery: No Anesthesia Reaction: No - PPD History Previous Implant?: Yes Documented Results: Negative w/proof Date: 06/19/18 Results: 0 mm PPD to be Administered?: No - Smoking Cessation Smoking history: Current every day smoker Have you smoked in the past 12 months: Yes Aproximately how many cigarettes per day: 10 Hx Chewing Tobacco Use: No Initiated information on smoking cessation: Yes 'Breaking Loose' booklet given: 12/09/18 - Substance & Tx. History Hx Alcohol Use: Yes Hx Substance Use: Yes Substance Use Type: Alcohol, Heroin Hx Substance Use Treatment: Yes (elevator 11/21/18 to 11/25/18) - Substances abused Heroin Substance route: Injection Frequency: Daily Amount used: 1/2 gram to 1 gram Age of first use: 14 Date of last use: 12/08/18 Alcohol Substance route: Oral Frequency: Daily Amount used: 1 pt. vodka, 6 beers ( 12 oz cans ) Age of first use: 17 Date of last use: 12/07/18 Family Disease History - Family Disease History Family Disease History: Diabetes: Mother (living), Sister, Other: Father (living , healthy), Mother, Daughter (one age 12) Admission Physical Exam S - Vital Signs Vital Signs: Vital Signs - 24 hr 12/09/18 12/09/18 10:47 11:11 Temperature 97.0 F L 97.0 F L Pulse Rate 81 81 Respiratory 18 18 Rate Blood Pressure 102/65 102/66 - Physical General Appearance: Yes: Moderate Distress, Tremorous, Irritable, Sweating, Anxious HEENTM: Yes: Normal ENT Inspection, Pharynx Normal Respiratory: Yes: Lungs Clear, Normal Breath Sounds, No Respiratory Distress Neck: Yes: Within Normal Limits, Supple, Trachea in good position Breast: Yes: Within Normal Limits Cardiology: Yes: Within Normal Limits, Regular Rhythm, Regular Rate, S1, S2 Abdominal: Yes: Within Normal Limits, Normal Bowel Sounds, Non Tender, Soft Genitourinary: Yes: Within Normal Limits Back: Yes: Normal Inspection, Muscle Spasm Musculoskeletal: Yes: full range of Motion, Back pain, Muscle Pain Extremities: Yes: Within Normal Limits, Normal Range of Motion, Tremors Neurological: Yes: 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 II-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 NML intact, Fully Oriented, Alert, Motor Strength 5/5 Integumentary: Yes: Dry, Track [place] Lymphatic: Yes: Within Normal Limits - Diagnostic (1) Opioid dependence with withdrawal Current Visit: No Status: Acute (2) Nicotine dependence Current Visit: No Status: Acute Qualifiers: Nicotine product type: cigarettes Substance use status: in withdrawal Qualified Code(s): F17.213 - Nicotine dependence, cigarettes, with withdrawal (3) Weight loss Current Visit: No Status: Acute (4) Cocaine dependence Current Visit: No Status: Chronic Qualifiers: Substance use status: uncomplicated Qualified Code(s): F14.20 - Cocaine dependence, uncomplicated (5) Hepatitis C Current Visit: No Status: Chronic Qualifiers: Viral hepatitis chronicity: chronic Hepatic coma status: without hepatic coma Qualified Code(s): B18.2 - Chronic viral hepatitis C (6) Hypertension Current Visit: No Status: Chronic Qualifiers: Hypertension type: essential hypertension Qualified Code(s): I10 - Essential (primary) hypertension (7) IVDU (intravenous drug user) Current Visit: Yes Status: Acute (8) Alcohol dependence, uncomplicated Current Visit: Yes Status: Acute (9) Alcohol dependence with uncomplicated withdrawal Current Visit: Yes Status: Acute Cleared for Admission S - Detox or Rehab [facility] Level of Care: Medically Managed Detox Regimen/Protocol: Methadone/Librium Breathalyzer - Breathalyzer Breathalyzer: 0 Urine Drug Screen - Test Device Lot number: [id number] Expiration date: 07/22/19 - Control Is test valid?: Yes - Results Drug screen NEGATIVE: No Urine drug screen results: COLT-Cocaine, FEN-Fentanyl, MOP-Opiates, MTD-Methadone , BZO-Benzodiazepines Inpatient Rehab Admission - Rehab Decision to Admit Inpatient rehab admission?: No
[2018-12-09] MEDS ORDERED: ACETAMINOPHEN 325 MG TABLET (FP) PO PRN ×2 (11:34)
[2018-12-09] MEDS ORDERED: BISMUTH SUBSALICYLATE 262 MG/15 ML BTL PO PRN (11:34)
[2018-12-09] MEDS ORDERED: MENTHOL/PHENOL 1 EACH UD MM PRN (11:34)
[2018-12-09] MEDS ORDERED: hydrOXYzine PAMOATE 25 MG CAPSULE (FP) PO PRN (11:34)
[2018-12-09] MEDS ORDERED: MAG HYDROX/AL HYDROX/SIMETH 30 ML UNIT-DOSE CUP PO PRN (11:34)
[2018-12-09] MEDS ORDERED: IBUPROFEN 400 MG TABLET (FP) PO PRN (11:34)
[2018-12-09] MEDS ORDERED: cloNIDine HCL 0.1 MG TABLET PO PRN (11:34)
[2018-12-09] MEDS ORDERED: MAGNESIUM CITRATE 300 ML BOTTLE PO PRN (11:34)
[2018-12-09] MEDS ORDERED: METHOCARBAMOL 500 MG TABLET PO PRN (11:34)
[2018-12-09] MEDS ORDERED: MAGNESIUM HYDROX 2400MG/30ML ORAL SUSPENSION 30 ML CUP PO PRN (11:34)
[2018-12-09] MEDS ORDERED: chlordiazePOXIDE HCL 25 MG CAPSULE PO PRN (11:39)
[2018-12-09] MEDS ORDERED: METHADONE HCL 10 MG TABLET (FOR DETOX USE ONLY) PO ONE ×2 (12:30→23:00)
[2018-12-09 17:19] LABS: HEMATOCRIT 38.4 % (35.4-49); MCHC 33.9 g/dl (32.0-35.9); MEAN CELL VOLUME 88.5 fl (80-96); PLATELET COUNT 191 K/MM3 (134-434); RBC 4.34 M/mm3 (4.00-5.60); RDW 14.6 % (11.9-15.9); WHITE BLOOD COUNT 6.3 K/mm3 (4.0-10.0)
[2018-12-09 17:27] LABS: ALBUMIN 3.6 g/dl (3.4-5.0); ALK PHOS 85 U/L (45-117); ANION GAP 5 MMOL/L (8-16); BILIRUBIN,TOTAL 0.2 mg/dL (0.2-1); BLOOD UREA NITROGEN 30 mg/dL (7-18); CALCIUM 9.6 mg/dL (8.5-10.1); CHLORIDE 107 mmol/L (98-107); CO2 31 mmol/L (21-32); CREATININE 1.1 mg/dL (0.55-1.3); GLUCOSE,RANDOM 129 mg/dL (74-106); POTASSIUM 4.4 mmol/L (3.5-5.1); SGOT/AST 39 U/L (15-37); SGPT/ALT 48 U/L (13-61); SODIUM 143 mmol/L (136-145); TOT PROT 7.2 g/dl (6.4-8.2)
[2018-12-09] MEDS: chlordiazePOXIDE HCL 25 MG CAPSULE PO SCH ×2 (17:52→22:28)
[2018-12-09] MEDS: THIAMINE HCL 100 MG TABLET (FP) PO SCH (22:28)
[2018-12-09] MEDS: MELATONIN 5 MG TABLETS PO PRN (22:29)
[2018-12-09 23:54] LABS: URINE APPEARANCE CLEAR; URINE BILIRUBIN NEGATIVE (NEGATIVE); URINE COLOR YELLOW; URINE GLUCOSE (UA) NEGATIVE (NEGATIVE); URINE KETONE NEGATIVE (NEGATIVE); URINE LEUK ESTERASE NEGATIVE (NEGATIVE); URINE NITRITE NEGATIVE (NEGATIVE); URINE PROTEIN NEGATIVE (NEGATIVE); URINE UROBILINOGEN 0.2 mg/dL (0.2-1.0)
[2018-12-10] MEDS: chlordiazePOXIDE HCL 25 MG CAPSULE PO SCH ×4 (05:56→22:33)
[2018-12-10] MEDS ORDERED: METHADONE HCL 10 MG TABLET (FOR DETOX USE ONLY) PO ONE (10:00)
[2018-12-10] MEDS: PRENATAL VITAMINS W/ FOLIC ACID TABLET (FP) PO SCH (10:30)
--- NOTE | 2018-12-10 16:45 | PN ---
BHS COWS - Scale Resting Pulse: 0= [place] 80 or Below Sweatin= Beads of Sweat on Face Restless Observation: 0= Sits Still Pupil Size: 0= Normal to Room Light Bone or Joint Aches: 4=Acute Joint/Muscle Pain Runny Nose/ Eye Tearin= None GI Upset > 30mins: 0= None Tremor Observation of Outstretched Hands: 0= None Yawning Observation: 2= >3x During Session Anxiety or Irritability: 1=Feels Anxious/Irritable Goose Flesh Skin: 0=Smooth Skin COWS Score: 10 BHS Progress Note (SOAP) Subjective: joint pain sweats Objective: 12/10/18 16:43 Vital Signs 12/10/18 12/10/18 09:54 14:36 Temperature 98.7 F 98.9 F Pulse Rate 72 89 Respiratory 18 18 Rate Blood Pressure 135/79 127/85 Laboratory Last Values WBC 6.3 K/mm3 (4.0-10.0) 12/09/18 11:45 RBC 4.34 M/mm3 (4.00-5.60) 12/09/18 11:45 Hgb 13.0 GM/dL (11.7-16.9) 12/09/18 11:45 Hct 38.4 % (35.4-49) 12/09/18 11:45 MCV 88.5 fl (80-96) 12/09/18 11:45 MCH 30.0 pg (25.7-33.7) 12/09/18 11:45 MCHC 33.9 g/dl (32.0-35.9) 12/09/18 11:45 RDW 14.6 % (11.9-15.9) 12/09/18 11:45 Plt Count 191 K/MM3 (134-434) 12/09/18 11:45 MPV 9.0 fl (7.5-11.1) 12/09/18 11:45 Sodium 143 mmol/L (136-145) 12/09/18 11:45 Potassium 4.4 mmol/L (3.5-5.1) 12/09/18 11:45 Chloride 107 mmol/L (98-107) 12/09/18 11:45 Carbon Dioxide 31 mmol/L (21-32) 12/09/18 11:45 Anion Gap 5 MMOL/L (8-16) L 12/09/18 11:45 BUN 30 mg/dL (7-18) H 12/09/18 11:45 Creatinine 1.1 mg/dL (0.55-1.3) 12/09/18 11:45 Creat Clearance w eGFR 72.06 (>60) 12/09/18 11:45 Random Glucose 129 mg/dL (74-106) H 12/09/18 11:45 Calcium 9.6 mg/dL (8.5-10.1) 12/09/18 11:45 Total Bilirubin 0.2 mg/dL (0.2-1) 12/09/18 11:45 AST 39 U/L (15-37) H 12/09/18 11:45 ALT 48 U/L (13-61) 12/09/18 11:45 Alkaline Phosphatase 85 U/L (45-117) 12/09/18 11:45 Total Protein 7.2 g/dl (6.4-8.2) 12/09/18 11:45 Albumin 3.6 g/dl (3.4-5.0) 12/09/18 11:45 Urine Color Yellow 12/09/18 16:15 Urine Appearance Clear 12/09/18 16:15 Urine pH 6.0 (5.0-8.0) 12/09/18 16:15 Ur Specific [place] 1.026 (1.010-1.035) 12/09/18 16:15 Urine Protein Negative (NEGATIVE) 12/09/18 16:15 Urine Glucose (UA) Negative (NEGATIVE) 12/09/18 16:15 Urine Ketones Negative (NEGATIVE) 12/09/18 16:15 Urine Blood Negative (NEGATIVE) 12/09/18 16:15 Urine Nitrite Negative (NEGATIVE) 12/09/18 16:15 Urine Bilirubin Negative (NEGATIVE) 12/09/18 16:15 Urine Urobilinogen 0.2 mg/dL (0.2-1.0) 12/09/18 16:15 Ur Leukocyte Esterase Negative (NEGATIVE) 12/09/18 16:15 RPR Titer Nonreactive (NONREACTIVE) 12/09/18 11:45 Labs reviewed Assessment: 12/10/18 16:43 AOX3 in no respiratory distress full rom ambulating in the unit withdrawal symptoms persists 12/10/18 16:44 12/10/18 16:45 Plan: continue detox increase fluids continue to monitor 12/10/18 16:44
[2018-12-10] MEDS: THIAMINE HCL 100 MG TABLET (FP) PO SCH (22:33)
[2018-12-10] MEDS: MELATONIN 5 MG TABLETS PO PRN (22:33)
[2018-12-11] MEDS: chlordiazePOXIDE HCL 25 MG CAPSULE PO SCH ×2 (05:22→10:09)
[2018-12-11] MEDS ORDERED: METHADONE HCL 10 MG TABLET (FOR DETOX USE ONLY) PO ONE (10:00)
[2018-12-11] MEDS: PRENATAL VITAMINS W/ FOLIC ACID TABLET (FP) PO SCH (10:08)
[2018-12-11] MEDS ORDERED: ONDANSETRON *ODT* 4 MG TABLET SL PRN (10:15)
--- NOTE | 2018-12-11 15:21 | PN ---
[facility] CIWA - CIWA Score Nausea/Vomitin-Mild Nausea/No Vomiting Muscle Tremors: 2 Anxiety: 2 Agitation: 2 Paroxysmal Sweats: 3 Orientation: 0-Oriented Tacttile Disturbances: 0-None Auditory Disturbances: 0-None Visual Disturbances: 0-None Headache: 0-None Present CIWA-Ar Total Score: 10 BHS COWS - Scale Resting Pulse: 0= [place] 80 or Below Sweatin= Chills/Flushing Restless Observation: 3= Extraneous Movement Pupil Size: 0= Normal to Room Light Bone or Joint Aches: 2= Severe Diffuse Aches Runny Nose/ Eye Tearin= Runny Nose/Eyes GI Upset > 30mins: 1= Stomach Cramp Tremor Observation of Outstretched Hands: 2= Slight Tremor Visible Yawning Observation: 0= None Anxiety or Irritability: 2=Irritable/Anxious Goose Flesh Skin: 0=Smooth Skin COWS Score: 13 BHS Progress Note (SOAP) Subjective: Nausea, sweating, back pain, interrupted sleep Objective: 12/11/18 15:18 Last Vital Signs Temp Pulse Resp BP Pulse Ox 97.7 F 80 18 136/97 12/11/18 14:24 12/11/18 14:24 12/11/18 14:24 12/11/18 14:24 Laboratory Tests 12/09/18 12/09/18 12/09/18 11:45 11:45 11:45 WBC 6.3 RBC 4.34 Hgb 13.0 Hct 38.4 MCV 88.5 MCH 30.0 MCHC 33.9 RDW 14.6 Plt Count 191 MPV 9.0 Sodium 143 Potassium 4.4 Chloride 107 Carbon Dioxide 31 Anion Gap 5 L BUN 30 H Creatinine 1.1 Creat Clearance w eGFR 72.06 Random Glucose 129 H Calcium 9.6 Total Bilirubin 0.2 AST 39 H ALT 48 Alkaline Phosphatase 85 Total Protein 7.2 Albumin 3.6 Urine Color Urine Appearance Urine pH Ur Specific [place] Urine Protein Urine Glucose (UA) Urine Ketones Urine Blood Urine Nitrite Urine Bilirubin Urine Urobilinogen Ur Leukocyte Esterase RPR Titer Nonreactive 12/09/18 16:15 WBC RBC Hgb Hct MCV MCH MCHC RDW Plt Count MPV Sodium Potassium Chloride Carbon Dioxide Anion Gap BUN Creatinine Creat Clearance w eGFR Random Glucose Calcium Total Bilirubin AST ALT Alkaline Phosphatase Total Protein Albumin Urine Color Yellow Urine Appearance Clear Urine pH 6.0 Ur Specific [place] 1.026 Urine Protein Negative Urine Glucose (UA) Negative Urine Ketones Negative Urine Blood Negative Urine Nitrite Negative Urine Bilirubin Negative Urine Urobilinogen 0.2 Ur Leukocyte Esterase Negative RPR Titer Labs reviewed: bun 30, serum gluc 129 Assessment: 12/11/18 15:19 Withdrawal symptoms Noted with azotemia and hyperglycemia Plan: Continue detox Azotemia: encouraged PO water hydration Hyperglycemia: most likely r/t withdrawal, repeat fasting glucose
[2018-12-11] MEDS ORDERED: chlordiazePOXIDE HCL 10 MG CAPSULE PO PRN (17:00)
[2018-12-11] MEDS: chlordiazePOXIDE HCL 10 MG CAPSULE PO SCH ×2 (17:29→22:31)
[2018-12-11] MEDS: MELATONIN 5 MG TABLETS PO PRN (22:31)
[2018-12-11] MEDS: THIAMINE HCL 100 MG TABLET (FP) PO SCH (22:31)
[2018-12-12] MEDS: chlordiazePOXIDE HCL 10 MG CAPSULE PO SCH ×2 (05:41→10:09)
[2018-12-12] MEDS ORDERED: METHADONE HCL 10 MG TABLET (FOR DETOX USE ONLY) PO ONE (10:00)
[2018-12-12] MEDS: PRENATAL VITAMINS W/ FOLIC ACID TABLET (FP) PO SCH (10:09)
--- NOTE | 2018-12-12 12:55 | PN ---
BHS COWS - Scale Resting Pulse: 0= [place] 80 or Below Sweatin= No chills or Flushing Restless Observation: 0= Sits Still Pupil Size: 0= Normal to Room Light Bone or Joint Aches: 1= Mild Discomfort Runny Nose/ Eye Tearin= None GI Upset > 30mins: 0= None Tremor Observation of Outstretched Hands: 0= None Yawning Observation: 1= 1-2x During Session Anxiety or Irritability: 2=Irritable/Anxious Goose Flesh Skin: 0=Smooth Skin COWS Score: 4 BHS Progress Note (SOAP) Subjective: C/O MILD ANXIETY AND INTERRUPTED SLEEP. Objective: 12/12/18 12:53 Vital Signs Temperature 97.1 F L 12/12/18 10:39 Pulse Rate 83 12/12/18 10:39 Respiratory Rate 18 12/12/18 10:39 Blood Pressure 127/78 12/12/18 10:39 O2 Sat by Pulse Oximetry (%) Laboratory Tests 12/09/18 12/09/18 12/09/18 11:45 11:45 11:45 WBC 6.3 RBC 4.34 Hgb 13.0 Hct 38.4 MCV 88.5 MCH 30.0 MCHC 33.9 RDW 14.6 Plt Count 191 MPV 9.0 Sodium 143 Potassium 4.4 Chloride 107 Carbon Dioxide 31 Anion Gap 5 L BUN 30 H Creatinine 1.1 Creat Clearance w eGFR 72.06 Random Glucose 129 H Fasting Glucose Calcium 9.6 Total Bilirubin 0.2 AST 39 H ALT 48 Alkaline Phosphatase 85 Total Protein 7.2 Albumin 3.6 Urine Color Urine Appearance Urine pH Ur Specific [place] Urine Protein Urine Glucose (UA) Urine Ketones Urine Blood Urine Nitrite Urine Bilirubin Urine Urobilinogen Ur Leukocyte Esterase RPR Titer Nonreactive 12/09/18 12/12/18 16:15 07:45 WBC RBC Hgb Hct MCV MCH MCHC RDW Plt Count MPV Sodium Potassium Chloride Carbon Dioxide Anion Gap BUN Creatinine Creat Clearance w eGFR Random Glucose Fasting Glucose 104 Calcium Total Bilirubin AST ALT Alkaline Phosphatase Total Protein Albumin Urine Color Yellow Urine Appearance Clear Urine pH 6.0 Ur Specific [place] 1.026 Urine Protein Negative Urine Glucose (UA) Negative Urine Ketones Negative Urine Blood Negative Urine Nitrite Negative Urine Bilirubin Negative Urine Urobilinogen 0.2 Ur Leukocyte Esterase Negative RPR Titer PE: ALERT AND ORIENTED X 3 SKIN WARM AND DRY +PERRLA, EOMS INTACT BL MILDLY ANXIOUS Assessment: 12/12/18 12:54 WITHDRAWAL SX Plan: CONTINUE DETOX ENCOURAGE ORAL FLUIDS FOR D/C IN AM
--- NOTE | 2018-12-12 16:51 | DS ---
[facility] Detox Discharge Summary Admission Date: 12/09/18 Discharge Date: 12/12/18 - History Present History: Alcohol Dependence, Opioid Dependence Additional Comments: Patient medically stable. Patient to follow up with out patient referrals. If worsening symptoms to seek medical attention. - Physical Exam Results Vital Signs: Vital Signs Temperature 97.2 F L 12/12/18 13:35 Pulse Rate 85 12/12/18 13:35 Respiratory Rate 18 12/12/18 13:35 Blood Pressure 135/84 12/12/18 13:35 O2 Sat by Pulse Oximetry (%) - Treatment Hospital Course: Detox Protocol Followed, Detoxed Safely, Responded well, Discharged Condition Good Patient has Accepted a Rehab Referral to: out patient referrals - Medication Discharge Medications: Ambulatory Orders NK [No Known Home Medication] 12/08/18 - Diagnosis (1) Alcohol dependence with uncomplicated withdrawal Current Visit: Yes Status: Acute (2) IVDU (intravenous drug user) Current Visit: Yes Status: Acute (3) Opioid dependence with withdrawal Current Visit: No Status: Acute (4) Weight loss Current Visit: Yes Status: Acute (5) Cocaine dependence Current Visit: Yes Status: Chronic Qualifiers: Substance use status: uncomplicated Qualified Code(s): F14.20 - Cocaine dependence, uncomplicated (6) Hepatitis C Current Visit: Yes Status: Chronic Qualifiers: Viral hepatitis chronicity: chronic Hepatic coma status: without hepatic coma Qualified Code(s): B18.2 - Chronic viral hepatitis C (7) Hypertension Current Visit: Yes Status: Chronic Qualifiers: Hypertension type: essential hypertension Qualified Code(s): I10 - Essential (primary) hypertension - AMA Did Patient Leave Against Medical Advice: No
--- NOTE | 2018-12-12 16:57 | PN ---
[facility] Progress Note Note: Vital Signs Temperature 97.2 F L 12/12/18 13:35 Pulse Rate 85 12/12/18 13:35 Respiratory Rate 18 12/12/18 13:35 Blood Pressure 135/84 12/12/18 13:35 O2 Sat by Pulse Oximetry (%) Laboratory Last Values WBC 6.3 K/mm3 (4.0-10.0) 12/09/18 11:45 RBC 4.34 M/mm3 (4.00-5.60) 12/09/18 11:45 Hgb 13.0 GM/dL (11.7-16.9) 12/09/18 11:45 Hct 38.4 % (35.4-49) 12/09/18 11:45 MCV 88.5 fl (80-96) 12/09/18 11:45 MCH 30.0 pg (25.7-33.7) 12/09/18 11:45 MCHC 33.9 g/dl (32.0-35.9) 12/09/18 11:45 RDW 14.6 % (11.9-15.9) 12/09/18 11:45 Plt Count 191 K/MM3 (134-434) 12/09/18 11:45 MPV 9.0 fl (7.5-11.1) 12/09/18 11:45 Sodium 143 mmol/L (136-145) 12/09/18 11:45 Potassium 4.4 mmol/L (3.5-5.1) 12/09/18 11:45 Chloride 107 mmol/L (98-107) 12/09/18 11:45 Carbon Dioxide 31 mmol/L (21-32) 12/09/18 11:45 Anion Gap 5 MMOL/L (8-16) L 12/09/18 11:45 BUN 30 mg/dL (7-18) H 12/09/18 11:45 Creatinine 1.1 mg/dL (0.55-1.3) 12/09/18 11:45 Creat Clearance w eGFR 72.06 (>60) 12/09/18 11:45 Random Glucose 129 mg/dL (74-106) H 12/09/18 11:45 Fasting Glucose 104 mg/dL (74-106) 12/12/18 07:45 Calcium 9.6 mg/dL (8.5-10.1) 12/09/18 11:45 Total Bilirubin 0.2 mg/dL (0.2-1) 12/09/18 11:45 AST 39 U/L (15-37) H 12/09/18 11:45 ALT 48 U/L (13-61) 12/09/18 11:45 Alkaline Phosphatase 85 U/L (45-117) 12/09/18 11:45 Total Protein 7.2 g/dl (6.4-8.2) 12/09/18 11:45 Albumin 3.6 g/dl (3.4-5.0) 12/09/18 11:45 Urine Color Yellow 12/09/18 16:15 Urine Appearance Clear 12/09/18 16:15 Urine pH 6.0 (5.0-8.0) 12/09/18 16:15 Ur Specific [place] 1.026 (1.010-1.035) 12/09/18 16:15 Urine Protein Negative (NEGATIVE) 12/09/18 16:15 Urine Glucose (UA) Negative (NEGATIVE) 12/09/18 16:15 Urine Ketones Negative (NEGATIVE) 12/09/18 16:15 Urine Blood Negative (NEGATIVE) 12/09/18 16:15 Urine Nitrite Negative (NEGATIVE) 12/09/18 16:15 Urine Bilirubin Negative (NEGATIVE) 12/09/18 16:15 Urine Urobilinogen 0.2 mg/dL (0.2-1.0) 12/09/18 16:15 Ur Leukocyte Esterase Negative (NEGATIVE) 12/09/18 16:15 RPR Titer Nonreactive (NONREACTIVE) 12/09/18 11:45 Patient scheduled for discharge in AM, reports needs to return to his job. Medically stable, no distress. Patient d/c. Patient declined referral to in patient rehab. Patient to follow up with out patient referrals. Follow up with PCP.
[2018-12-12] MEDS ORDERED: chlordiazePOXIDE HCL 10 MG CAPSULE PO SCH (17:00)
[2018-12-12 17:27] VITALS: BP 128/84; PULSE 84; TEMP 97.7
[2018-12-13] MEDS ORDERED: METHADONE HCL 5 MG TABLET (FOR DETOX USE ONLY) PO ONE (06:00)
== END 2018-12-12 05:05 | disposition home or self-care (01) | DRG 773 ==
LOC: YASAS 10:33 → Y6N 11:56
PROVIDERS: ADMIT Surgery; ATTEND Surgery
PROC: HZ2ZZZZ Detoxification Services for Substance Abuse Treatment (ICD-10-PCS; principal; 2018-12-09)
DX: F10.230 Alcohol dependence with withdrawal, uncomplicated (principal); F11.23 Opioid dependence with withdrawal; F14.20 Cocaine dependence, uncomplicated; I10 Essential (primary) hypertension; B18.2 Chronic viral hepatitis C; R73.9 Hyperglycemia, unspecified; R63.4 Abnormal weight loss; Z68.23 Body mass index [BMI] 23.0-23.9, adult
CPT/HCPCS: 36415; 80053; 81003; 82947; 85027; 86593

== ENCOUNTER 2019-05-25 13:00 | Inpatient (IN) | payer OTHER ==
[2019-05-25 17:13] VITALS: BMI 25.4
--- NOTE | 2019-05-25 19:32 | HP ---
COWS - Scale Resting Pulse: 0= [place] 80 or Below Sweatin= Chills/Flushing Restless Observation: 1= Difficult to Sit Still Pupil Size: 0= Normal to Room Light Bone or Joint Aches: 2= Severe Diffuse Aches Runny Nose/ Eye Tearin= Runny Nose/Eyes GI Upset > 30mins: 2= Nausea/Diarrhea Tremor Observation: 1= Tremor [place], Not Seen Yawning Observation: 0= None Anxiety or Irritability: 1=Feels Anxious/Irritable Goose Flesh Skin: 0=Smooth Skin COWS Score: 10 CIWA Score - Admission Criteria [facility]ASAS Guidelines: Admission for Medically Managed Detox: Requires at least one of the followin. CIWA greater than 12 2. Seizures within the past 24 hours 3. Delirium tremens within the past 24 hours 4. Hallucinations within the past 24 hours 5. Acute intervention needed for co occurring medical disorder 6. Acute intervention needed for co occurring psychiatric disorder 7. Severe withdrawal that cannot be handled at a lower level of care (continued vomiting, continued diarrhea, abnormal vital signs) requiring intravenous medication and/or fluids 8. Admitting History and Physical - Smoking History Smoking history: Current every day smoker Have you smoked in the past 12 months: Yes Aproximately how many cigarettes per day: 10 - Alcohol/Substance Use Hx Alcohol Use: Yes Admission ROS [facility] Chief Complaint: Florentino Galindo is a 48 year old male presenting for heroin detox. Allergies/Adverse Reactions: Allergies Allergy/AdvReac Type Severity Reaction Status Date / Time No Known Allergies Allergy Verified 05/25/19 17:09 History of Present Illness: Florentino Galindo is a 48 year old male presenting for heroin detox. Heroin: 5 bags/day. States his last use was this morning. Daily user. Endorses IVDU. Injects into his arm. Has had abscesses in the past, not recently. Had an overdoses in the past, most recent 1 week prior. Has Narcan kit. States he gets from one dealer. States he doesn't always know is in his drugs. Withdrawal symptoms: chills, vomiting, diarrhea, tremors. States he has not been on a methadone program and gets methadone off the street. States he uses clean needles and does not share. Cocaine: 10$/day. Daily user. Endorses IVDU. Alcohol: occasional use. last drink yesterday 3 beers. Denies seizures, blackouts, falls, head hits. Has been to detox in the past. States he is considering rehab. Will speak with counselor. States is also considering going on a methadone program or suboxone. Medical History: Hep C (active), previously treated Hep C and reinfected Surgical History: denies Psychiatric History: denies Smokin/2 ppd Social: apartment, lives with daughter's mother. 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 Will be admitted for detox from heroin in setting of multiple overdoses in the past and need for rn social services and referral to rehab. Used heroin this morning. Not enough time has passed for patient to have intense withdrawal symptoms. Exam Limitations: No Limitations - Ebola screening Have you traveled outside of the country in the last 21 days: No Have you had contact with anyone from an Ebola affected area: No Do you have a fever: No - Review of Systems Constitutional: Chills, Loss of Appetite EENT: reports: Other (rhinnorhea) Respiratory: reports: No Symptoms reported Cardiac: reports: No Symptoms Reported GI: reports: Nausea, Indigestion : reports: No Symptoms Reported Musculoskeletal: reports: Back Pain, Joint Stiffness (knees bilaterally) Neuro: reports: No Symptoms reported Endocrine: reports: No Symptoms Reported Hematology: reports: No Symptoms Reported Psychiatric: reports: Mood/Affect Appropiate Patient History - Patient Medical History Hx Anemia: No Hx Asthma: No Hx Chronic Obstructive Pulmonary Disease (COPD): No Hx Cancer: No Hx Cardiac Disorders: No Hx Hypertension: No Hx Hypercholesterolemia: No Hx Pacemaker: No HX Cerebrovascular Accident: No Hx Seizures: No Hx Dementia: No Hx Diabetes: No Hx Gastrointestinal Disorders: No Hx Liver Disease: No Hx Genitourinary Disorders: No Hx Sexually Transmitted Disorders: No Hx Renal Disease (ESRD): No Hx Thyroid Disease: No Hx Human Immunodeficiency Virus (HIV): No (last negagive) Hx Hepatitis C: Yes (treated with harvoni but was re-infected) Hx Depression: No Hx Suicide Attempt: No (denies) Hx Bipolar Disorder: No Hx Schizophrenia: No - Patient Surgical History Past Surgical History: No Hx Neurologic Surgery: No Hx Cataract Extraction: No Hx Cardiac Surgery: No Hx Lung Surgery: No Hx Breast Surgery: No Hx Breast Biopsy: No Hx Abdominal Surgery: No Hx Appendectomy: No Hx Cholecystectomy: No Hx Genitourinary Surgery: No Hx Section: No Hx Orthopedic Surgery: No Anesthesia Reaction: No - PPD History Previous Implant?: Yes Documented Results: Negative w/o proof Date: 06/19/18 Results: 0 mm PPD to be Administered?: No - Smoking Cessation Smoking history: Current every day smoker Have you smoked in the past 12 months: Yes Aproximately how many cigarettes per day: 10 Hx Chewing Tobacco Use: No Initiated information on smoking cessation: Yes 'Breaking Loose' booklet given: 05/25/19 - Substance & Tx. History Hx Alcohol Use: Yes Hx Substance Use: Yes Substance Use Type: Cocaine, Heroin, Opiates - Substances abused Heroin Substance route: Injection Frequency: Daily Amount used: 1/2 gram to 1 gram Age of first use: 14 Date of last use: 05/25/19 Alcohol Substance route: Oral Frequency: Daily Amount used: 1 pt. vodka, 6 beers ( 12 oz cans ) Age of first use: 17 Date of last use: 12/07/18 Admission Physical Exam S - Vital Signs Vital Signs: Vital Signs - 24 hr 05/25/19 05/25/19 17:08 18:52 Temperature 97.6 F 97.6 F Pulse Rate 77 77 Respiratory 17 17 Rate Blood Pressure 130/79 130/79 - Physical General Appearance: Yes: Disheveled, Mild Distress HEENTM: Yes: EOMI, Normocephalic, Normal Voice, NICHOL, Pharynx Normal Respiratory: Yes: Chest Non-Tender, Lungs Clear, Normal Breath Sounds, No Respiratory Distress, No Accessory Muscle Use Neck: Yes: No masses,lesions,Nodules, Trachea in good position Breast: Yes: Breast Exam Deferred Cardiology: Yes: Regular Rhythm, Regular Rate, S1, S2 Abdominal: Yes: Normal Bowel Sounds, Non Tender, Flat, Soft Genitourinary: Yes: Within Normal Limits Back: Yes: Normal Inspection Musculoskeletal: Yes: full range of Motion, Back pain Extremities: Yes: Normal Capillary Refill, Normal Inspection, Normal Range of Motion, Non-Tender Neurological: Yes: machine straw hat presser II-XII NML intact, Fully Oriented, Alert, Motor Strength 5/5 Integumentary: Yes: Normal Color, Dry, Warm, Track Kimble (on L arm, scattered excoriations) - Diagnostic (1) Alcohol dependence with uncomplicated withdrawal Current Visit: No Status: Acute (2) IVDU (intravenous drug user) Current Visit: No Status: Acute (3) Nicotine dependence Current Visit: No Status: Acute Qualifiers: Nicotine product type: cigarettes Substance use status: in withdrawal Qualified Code(s): F17.213 - Nicotine dependence, cigarettes, with withdrawal (4) Opioid dependence with withdrawal Current Visit: No Status: Acute (5) Weight loss Current Visit: No Status: Acute (6) Cocaine dependence Current Visit: No Status: Chronic Qualifiers: Substance use status: uncomplicated Qualified Code(s): F14.20 - Cocaine dependence, uncomplicated (7) Hepatitis C Current Visit: No Status: Chronic Qualifiers: Viral hepatitis chronicity: chronic Hepatic coma status: without hepatic coma Qualified Code(s): B18.2 - Chronic viral hepatitis C Cleared for Admission S - Detox or Rehab [facility] Level of Care: Medically Managed Detox Regimen/Protocol: Methadone Breathalyzer - Breathalyzer Breathalyzer: 0 Urine Drug Screen - Test Device Lot number: [id number] Expiration date: 07/22/19 - Control Is test valid?: Yes - Results Drug screen NEGATIVE: No Urine drug screen results: COLT-Cocaine, FEN-Fentanyl, MOP-Opiates, MTD-Methadone , BZO-Benzodiazepines Inpatient Rehab Admission - Rehab Decision to Admit Inpatient rehab admission?: No
[2019-05-25] MEDS ORDERED: IBUPROFEN 400 MG TABLET (FP) PO PRN (19:52)
[2019-05-25] MEDS ORDERED: ACETAMINOPHEN 325 MG TABLET (FP) PO PRN ×2 (19:52)
[2019-05-25] MEDS ORDERED: METHADONE HCL 10 MG TABLET (FOR DETOX USE ONLY) PO ONE (19:52)
[2019-05-25] MEDS ORDERED: MAGNESIUM CITRATE 300 ML BOTTLE PO PRN (19:52)
[2019-05-25] MEDS ORDERED: BISMUTH SUBSALICYLATE 524 MG/30 ML UD PO PRN (19:52)
[2019-05-25] MEDS ORDERED: NICOTINE POLACRILEX 2 MG GUM BUC PRN (19:52)
[2019-05-25] MEDS ORDERED: cloNIDine HCL 0.1 MG TABLET PO PRN (19:52)
[2019-05-25] MEDS ORDERED: MAGNESIUM HYDROX 2400MG/30ML ORAL SUSPENSION 30 ML CUP PO PRN (19:52)
[2019-05-25] MEDS ORDERED: MELATONIN 5 MG TABLETS PO PRN (19:52)
[2019-05-25] MEDS ORDERED: MENTHOL/PHENOL 1 EACH UD MM PRN (19:52)
[2019-05-25] MEDS ORDERED: MAG HYDROX/AL HYDROX/SIMETH 30 ML UNIT-DOSE CUP PO PRN (19:52)
--- NOTE | 2019-05-25 19:59 | PN ---
Teaching Attending Note Name of Resident: Alfred Baron ATTENDING PHYSICIAN STATEMENT I saw and evaluated the patient. I reviewed the resident's note and discussed the case with the resident. I agree with the resident's findings and plan as documented. SUBJECTIVE:t here requesting detox from heroin use , reports 4-5 bags/ day ivdu in [facility] , relapsed approx 2 months after d/c from this facility, latest use this morning , current symptoms as above , needles from the needle exchange, denies sharing , + re-using sometimes , + abscess in the past, most recently 2012 , OD x 8 , most recently 2017 . utox + kerry , + fen , + opi , mtd , bzo . Admits to illicit methadone use 1 week ago , denies benzo use , admits to cocaine use . cocaine : 20 $ /day IVDU fentanyl - denies etoh : " a beer here and there " tobacco : 5-10 cigs/ day Pmhx : admits to dx of Hep C , tx in the past , states re-infected and has not sought tx yet. 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
[2019-05-25] MEDS: hydrOXYzine PAMOATE 25 MG CAPSULE (FP) PO PRN (20:47)
[2019-05-25] MEDS: THIAMINE HCL 100 MG TABLET (FP) PO SCH (22:45)
[2019-05-26] MEDS ORDERED: METHADONE HCL 5 MG TABLET (FOR DETOX USE ONLY) PO ONE (10:00)
[2019-05-26] MEDS: hydrOXYzine PAMOATE 25 MG CAPSULE (FP) PO PRN (10:22)
[2019-05-26] MEDS: PRENATAL VITAMINS W/ FOLIC ACID TABLET (FP) PO SCH (10:24)
[2019-05-26 10:42] LABS: HEMATOCRIT 40.2 % (35.4-49); HEMOGLOBIN 13.6 GM/dL (11.7-16.9); MCH 30.1 pg (25.7-33.7); MCHC 33.8 g/dl (32.0-35.9); MEAN PLT VOLUME 8.9 fl (7.5-11.1); PLATELET COUNT 166 K/MM3 (134-434); RBC 4.51 M/mm3 (4.00-5.60); RDW 15.5 % (11.9-15.9); WHITE BLOOD COUNT 3.9 K/mm3 (4.0-10.0)
[2019-05-26 10:45] LABS: ALBUMIN 3.2 g/dl (3.4-5.0); BILIRUBIN,TOTAL 0.4 mg/dL (0.2-1); BLOOD UREA NITROGEN 15.8 mg/dL (7-18); CALCIUM 8.7 mg/dL (8.5-10.1); CREATININE 0.9 mg/dL (0.55-1.3); POTASSIUM 4.3 mmol/L (3.5-5.1); TOT PROT 6.4 g/dl (6.4-8.2)
--- NOTE | 2019-05-26 17:07 | PN ---
BHS COWS - Scale Resting Pulse: 1= [place] 81-100 Sweatin= Chills/Flushing Restless Observation: 1= Difficult to Sit Still Pupil Size: 0= Normal to Room Light Bone or Joint Aches: 1= Mild Discomfort Runny Nose/ Eye Tearin= None GI Upset > 30mins: 2= Nausea/Diarrhea Tremor Observation of Outstretched Hands: 0= None Yawning Observation: 1= 1-2x During Session Anxiety or Irritability: 2=Irritable/Anxious Goose Flesh Skin: 3=Piloerection COWS Score: 12 BHS Progress Note (SOAP) Subjective: Nausea, Anxious, Diarrhea, Tremors. Objective: PATIENT A & O X 3, OBSERVED AMBULATING ON DETOX UNIT UNASSISTED. IN NO ACUTE DISTRESS. 05/26/19 17:08 Vital Signs Temperature 97.0 F L 05/26/19 13:25 Pulse Rate 86 05/26/19 13:25 Respiratory Rate 17 05/26/19 13:25 Blood Pressure 129/77 05/26/19 13:25 O2 Sat by Pulse Oximetry (%) Laboratory Tests 05/26/19 05/26/19 05/26/19 08:00 08:00 08:00 WBC 3.9 L RBC 4.51 Hgb 13.6 Hct 40.2 MCV 89.0 MCH 30.1 MCHC 33.8 RDW 15.5 Plt Count 166 MPV 8.9 Sodium 143 Potassium 4.3 Chloride 109 H Carbon Dioxide 28 Anion Gap 5 L BUN 15.8 Creatinine 0.9 Est GFR (CKD-EPI)AfAm 118.30 Est GFR (CKD-EPI)NonAf 102.07 Random Glucose 86 Calcium 8.7 Total Bilirubin 0.4 AST 25 ALT 30 Alkaline Phosphatase 70 Total Protein 6.4 Albumin 3.2 L RPR Titer Nonreactive LABS NOTED. Assessment: 05/26/19 17:09 WITHDRAWAL SYMPTOMS. Plan: CONTINUE DETOX. INCREASE DAILY PO WATER INTAKE. PRN PEPTO-BISMOL PO FOR DIARRHEA.
[2019-05-26] MEDS: THIAMINE HCL 100 MG TABLET (FP) PO SCH (21:44)
[2019-05-27] MEDS ORDERED: METHADONE HCL 10 MG TABLET (FOR DETOX USE ONLY) PO ONE (10:00)
[2019-05-27] MEDS: PRENATAL VITAMINS W/ FOLIC ACID TABLET (FP) PO SCH (10:29)
--- NOTE | 2019-05-27 16:40 | PN ---
BHS COWS - Scale Resting Pulse: 0= [place] 80 or Below Sweatin= Chills/Flushing Restless Observation: 1= Difficult to Sit Still Pupil Size: 0= Normal to Room Light Bone or Joint Aches: 0= None Runny Nose/ Eye Tearin= None GI Upset > 30mins: 0= None Tremor Observation of Outstretched Hands: 0= None Yawning Observation: 1= 1-2x During Session Anxiety or Irritability: 2=Irritable/Anxious Goose Flesh Skin: 3=Piloerection COWS Score: 8 BHS Progress Note (SOAP) Subjective: Anxious, Restless, Sweating. Objective: PATIENT A & O X 3, OBSERVED AMBULATING ON DETOX UNIT UNASSISTED. IN NO ACUTE DISTRESS. 05/27/19 16:39 Vital Signs Temperature 97.7 F 05/27/19 14:49 Pulse Rate 80 05/27/19 14:49 Respiratory Rate 18 05/27/19 14:49 Blood Pressure 140/79 05/27/19 14:49 O2 Sat by Pulse Oximetry (%) Laboratory Tests 05/26/19 05/26/19 05/26/19 08:00 08:00 08:00 WBC 3.9 L RBC 4.51 Hgb 13.6 Hct 40.2 MCV 89.0 MCH 30.1 MCHC 33.8 RDW 15.5 Plt Count 166 MPV 8.9 Sodium 143 Potassium 4.3 Chloride 109 H Carbon Dioxide 28 Anion Gap 5 L BUN 15.8 Creatinine 0.9 Est GFR (CKD-EPI)AfAm 118.30 Est GFR (CKD-EPI)NonAf 102.07 Random Glucose 86 Calcium 8.7 Total Bilirubin 0.4 AST 25 ALT 30 Alkaline Phosphatase 70 Total Protein 6.4 Albumin 3.2 L RPR Titer Nonreactive LABS NOTED. Assessment: 05/27/19 16:40 WITHDRAWAL SYMPTOMS. Plan: CONTINUE DETOX. PATIENT SCHEDULED FOR D/C FROM DETOX UNIT TOMORROW.
[2019-05-27] MEDS: THIAMINE HCL 100 MG TABLET (FP) PO SCH (23:15)
[2019-05-28] MEDS ORDERED: METHADONE HCL 5 MG TABLET (FOR DETOX USE ONLY) PO ONE (06:00)
[2019-05-28 09:13] VITALS: BP 131/86; PULSE 83; TEMP 97.4
--- NOTE | 2019-05-28 13:42 | DS ---
[facility] Detox Discharge Summary Admission Date: 05/25/19 Discharge Date: 05/28/19 - History Present History: Opioid Dependence Additional Comments: did well with methadone detox regimen no complication through out the detox stay patient is alert oriented x 3 speech clearly coherently ambulating steady gait respiratory lung clear bilaterally on auscultation extremities full range of motion - Physical Exam Results Vital Signs: Vital Signs Temperature 97.4 F L 05/28/19 09:00 Pulse Rate 83 05/28/19 09:00 Respiratory Rate 18 05/28/19 09:00 Blood Pressure 131/86 05/28/19 09:00 O2 Sat by Pulse Oximetry (%) Pertinent Admission Physical Exam Findings: opiate withdrawal sx Laboratory Last Values WBC 3.9 K/mm3 (4.0-10.0) L 05/26/19 08:00 RBC 4.51 M/mm3 (4.00-5.60) 05/26/19 08:00 Hgb 13.6 GM/dL (11.7-16.9) 05/26/19 08:00 Hct 40.2 % (35.4-49) 05/26/19 08:00 MCV 89.0 fl (80-96) 05/26/19 08:00 MCH 30.1 pg (25.7-33.7) 05/26/19 08:00 MCHC 33.8 g/dl (32.0-35.9) 05/26/19 08:00 RDW 15.5 % (11.9-15.9) 05/26/19 08:00 Plt Count 166 K/MM3 (134-434) 05/26/19 08:00 MPV 8.9 fl (7.5-11.1) 05/26/19 08:00 Sodium 143 mmol/L (136-145) 05/26/19 08:00 Potassium 4.3 mmol/L (3.5-5.1) 05/26/19 08:00 Chloride 109 mmol/L (98-107) H 05/26/19 08:00 Carbon Dioxide 28 mmol/L (21-32) 05/26/19 08:00 Anion Gap 5 MMOL/L (8-16) L 05/26/19 08:00 BUN 15.8 mg/dL (7-18) 05/26/19 08:00 Creatinine 0.9 mg/dL (0.55-1.3) 05/26/19 08:00 Est GFR (CKD-EPI)AfAm 118.30 05/26/19 08:00 Est GFR (CKD-EPI)NonAf 102.07 05/26/19 08:00 Random Glucose 86 mg/dL (74-106) 05/26/19 08:00 Calcium 8.7 mg/dL (8.5-10.1) 05/26/19 08:00 Total Bilirubin 0.4 mg/dL (0.2-1) 05/26/19 08:00 AST 25 U/L (15-37) 05/26/19 08:00 ALT 30 U/L (13-61) 05/26/19 08:00 Alkaline Phosphatase 70 U/L (45-117) 05/26/19 08:00 Total Protein 6.4 g/dl (6.4-8.2) 05/26/19 08:00 Albumin 3.2 g/dl (3.4-5.0) L 05/26/19 08:00 RPR Titer Nonreactive (NONREACTIVE) 05/26/19 08:00 lab noted 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 - Treatment Hospital Course: Detox Protocol Followed, Detoxed Safely, Responded well, Discharged Condition Good, Rehab Referral Accepted Patient has Accepted a Rehab Referral to: community support approach - Medication Discharge Medications: Ambulatory Orders Naloxone HCl [Narcan] 4 mg NS ASDIR PRN #1 spray 05/28/19 - Diagnosis (1) Nicotine dependence Status: Acute Qualifiers: Nicotine product type: cigarettes Substance use status: in withdrawal Qualified Code(s): F17.213 - Nicotine dependence, cigarettes, with withdrawal (2) Opioid dependence with withdrawal Status: Acute (3) Hepatitis C Status: Chronic Qualifiers: Viral hepatitis chronicity: chronic Hepatic coma status: without hepatic coma Qualified Code(s): B18.2 - Chronic viral hepatitis C (4) Hypertension Status: Chronic Qualifiers: Hypertension type: essential hypertension Qualified Code(s): I10 - Essential (primary) hypertension - AMA Did Patient Leave Against Medical Advice: No COWS (PN) - Opiate Withdrawal Resting Pulse: 1= VA 81-100 Sweatin= Chills/Flushing Restless Observation: 0= Sits Still Pupil Size: 0= Normal to Room Light Bone or Joint Aches: 1= Mild Discomfort Runny Nose/ Eye Tearin= None GI Upset > 30mins: 0= None Tremor Observation of Outstretched Hands: 1= Tremor [place], Not Seen Yawning Observation: 0= None Anxiety or Irritability: 1=Feels Anxious/Irritable Goose Flesh Skin: 0=Smooth Skin COWS Score: 5
== END 2019-05-28 09:05 | disposition home or self-care (01) | DRG 773 ==
LOC: YASAS 13:00 → Y3N 19:37
PROVIDERS: ADMIT Surgery; ATTEND Surgery
PROC: HZ2ZZZZ Detoxification Services for Substance Abuse Treatment (ICD-10-PCS; principal; 2019-05-25)
DX: F11.23 Opioid dependence with withdrawal (principal); F10.230 Alcohol dependence with withdrawal, uncomplicated; F14.20 Cocaine dependence, uncomplicated; F17.213 Nicotine dependence, cigarettes, with withdrawal; I10 Essential (primary) hypertension; B18.2 Chronic viral hepatitis C
CPT/HCPCS: 36415; 80053; 85027; 86593; J0735